=== PATIENT | male | born 1965 | race African-American/Black ===

== ENCOUNTER 2017-09-20 10:31 | Inpatient (IN) | payer SELFPAY ==
[~2017-09-20] VITALS: Ht 185.4 cm; Wt 118.0 kg
[~2017-09-20 10:31] MED LIST: COUM5TAB PO; NAPR500 PO
[2017-09-20 10:39] VITALS: BP 152/96; PULSE 73; RESP 20; TEMP 98.9; O2SAT 97
[2017-09-20] MEDS ORDERED: ASPI325T PO (10:44)
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
[2017-09-20] MEDS ORDERED: KETOROLAC TROMETHAMINE 30 MG/ML (IVP) VIAL IV PUSH ONE (11:15)
[2017-09-20] MEDS ORDERED: SODIUM CHLORID 0.9% 500 ML INJ 500 ML IV ONE (11:15)
[2017-09-20] MEDS ORDERED: ACETAMINOPHEN/HYDROcodone 325 MG/5 MG TAB PO ONE (11:15)
[2017-09-20 12:20] VITALS: BP 112/59; PULSE 70; RESP 16; O2SAT 98
--- NOTE | 2017-09-20 12:44 | RADRPT ---
EXAM DATE/TIME: 09/20/2017 11:25 [facility] COMPARISON: No previous studies available for comparison. INDICATIONS : Back pain. RADIATION DOSE: 35.86 CTDIvol (mGy) MEDICAL HISTORY : Deep venous thrombosis. SURGICAL HISTORY : IVC filter. ENCOUNTER: Initial ACUITY: 1 day PAIN SCALE: 5/10 LOCATION: Bilateral lumbar TECHNIQUE: Volumetric scanning of the lumbar spine was performed. Multiplanar reconstructions in the sagittal, coronal and oblique axial planes were performed. Using automated exposure control and adjustment of the mA and/or kV according to patient size, radiation dose was kept as low as reasonably achievable t o obtain optimal diagnostic quality images. DICOM format image data is available electronically for review and comparison. FINDINGS: VERTEBRAE: Normal vertebral body height. There is a rudimentary S1-S2 disc. ALIGNMENT: No evidence of subluxation. There is minimal dextrocurvature of the lumbar spine seen on the coronal images. OTHER: There is an IVC filter. T12-L1: The thecal sac has a normal diameter. No evidence of disc bulge or protrusion. The neural foramina are patent bilaterally. L1-L2: The thecal sac has a normal diameter. No evidence of disc bulge or protrusion. The neural foramina are patent bilaterally. L2-L3: The thecal sac has a normal diameter. No evidence of disc bulge or protrusion. The neural foramina are patent bilaterally. L3-L4: There is slight disc bulging worse on the left without significant stenosis. The neural foramina are patent bilaterally. There is mild facet hypertrophy. L4-L5: There is mild disc bulge. Anterior marginal osteophytes are seen. There is mild facet hypertrophy. Th ere is ligamentum flavum hypertrophy especially on the left. There appears to be least mild narrowing of the thecal sac. The neural foramina are patent bilaterally. L5-S1: The thecal sac has a normal diameter. No evidence of disc bulge or protrusion. The neural foramina are patent bilaterally. CONCLUSION: 1. Mild disc bulge at the L4-5 level. It is very prominent ligamentum flavum hypertrophy. These yates es cause at least mild narrowing of the thecal sac. 2. Facet hypertrophy at the L3-L4 and L4-L5 levels Darian Almanza MD on September 20, 2017 at 12:36 Board Certified Radiologist. This report was verified electronically.
[2017-09-20 14:04] VITALS: BP 117/68; PULSE 71; RESP 16; O2SAT 99
[2017-09-20 14:12] LABS: AUTOMATED NEUTROPHIL # 6.1 TH/MM3 (1.8-7.7); BASOPHIL % 0.5 % (0.0-2.0); EOSINOPHIL # 0.2 TH/MM3 (0-0.4); EOSINOPHIL % 3.2 % (0.0-4.0); HEMATOCRIT 36.2 % (39.0-51.0); LYMPH % 12.1 % (9.0-44.0); LYMPHOCYTE # 0.9 TH/MM3 (1.0-4.8); MEAN CELL VOLUME 86.9 FL (80.0-100.0); MEAN CORPUSCULAR HEMOGLOBIN 28.8 PG (27.0-34.0); MEAN CORPUSCULAR HGB CONC 33.2 % (32.0-36.0); MONO % 6.7 % (0.0-8.0); NEUT % 77.5 % (16.0-70.0); PLATELET COUNT 127 TH/MM3 (150-450); RED BLOOD COUNT 4.17 MIL/MM3 (4.50-5.90); RED CELL DISTRIBUTION WIDTH 14.9 % (11.6-17.2); WHITE BLOOD COUNT 7.9 TH/MM3 (4.0-11.0)
[2017-09-20 14:19] LABS: APTT (PATIENT) 28.2 SEC (24.3-30.1)
[2017-09-20 14:25] LABS: HEMO FLAGS AUTO DIFF
[2017-09-20 14:27] LABS: BICARBONATE 27.2 MEQ/L (21.0-32.0)
[2017-09-20 14:28] LABS: POTASSIUM 4.9 MEQ/L (3.5-5.1)
[2017-09-20] MEDS ORDERED: SODIUM CHLORIDE 0.9% FLUSH 10 ML FLUSH IV FLUSH PRN (14:45)
[2017-09-20 14:50] LABS: SCAN/DIFF AUTO DIFF CONFIRMED
[2017-09-20 15:06] LABS: TOTAL BILIRUBIN ADULT 0.6 MG/DL (0.2-1.0)
[2017-09-20 15:14] LABS: INDIRECT BILIRUBIN 0.5 MG/DL (0.0-0.8)
[2017-09-20] MEDS ORDERED: ACETAMINOPHEN/HYDROcodone 325 MG/5 MG TAB PO PRN (15:15)
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
--- NOTE | 2017-09-20 15:23 | RADRPT ---
EXAM DATE/TIME: 09/20/2017 13:28 [facility] COMPARISON: No previous studies available for comparison. INDICATIONS : Right leg pain. MEDICAL HISTORY : Deep vein thrombosis. Pulmonary embolism. Asthma. SURGICAL HISTORY : IVC filter. Left hand surgery. ENCOUNTER: Initial ACUITY: 4 - 6 days PAIN SCORE: 1/10 LOCATION: Right leg. TECHNIQUE: Venous ultrasound of the leg was performed from the inguinal ligament to the proximal calf. Real-brenton e, color Doppler and spectral tracing, compression and augmentation techniques were used. FINDINGS: Echogenic noncompressible material is seen extending from the common femoral vein to the below-knee p opliteal vein. This is essentially occlusive throughout. Thrombus is also seen at the junction of the greater saphenous vein with the common femoral vein. This is nearly occlusive. CONCLUSION: Diffuse occlusive DVT. Vega London Jr., MD on September 20, 2017 at 15:20 Board Certified Radiologist. This report was verified electronically.
[2017-09-20] MEDS ORDERED: HEPARIN SODIUM - IV 10,000 UNITS/10 ML VIAL IV PUSH ONE (15:30)
[2017-09-20] MEDS: HEPARIN-D5W 25,000 U/250 ML 250 ML IV PRN (15:52)
[2017-09-20] MEDS ORDERED: IOHEXOL 350 MG/ML 10 ML VIAL (for RAD DIAG) IVCONTRAST ONE (16:24)
--- NOTE | 2017-09-20 16:37 | RADRPT ---
EXAM DATE/TIME: 09/20/2017 16:12 [facility] COMPARISON: No previous studies available for comparison. INDICATIONS : History of pulmonary embolism and deep vein thrombosis. IV CONTRAST: 65 cc Omnipaque 350 (iohexol) IV RADIATION DOSE: 16.13 CTDIvol (mGy) MEDICAL HISTORY : Deep venous thrombosis. Pulmonary embolism SURGICAL HISTORY : IVC Filter placement. ENCOUNTER: Initial ACUITY: 2 days PAIN SCALE: 0/10 LOCATION: chest TECHNIQUE: Volumetric scanning of the chest was performed using a pulmonary embolism protocol MIP images were re constructed. Using automated exposure control and adjustment of the mA and/or kV according to patien t size, radiation dose was kept as low as reasonably achievable to obtain optimal diagnostic quality images. DICOM format image data is available electronically for review and comparison. Follow-up recommendations for detected pulmonary nodules are based at a minimum on nodule size and pa tient risk factors according to Fleischner Society Guidelines. FINDINGS: PULMONARY ARTERIES: No filling defects are seen in the pulmonary arteries through the segmental level. LUNGS: There is no consolidation or pneumothorax . No concerning pulmonary nodule is visualized. PLEURAE: There is no pleural thickening or pleural effusion. MEDIASTINUM: There is good visualization of the great vessels of the middle mediastinum. No evidence of mediastin al or hilar adenopathy/mass. MUSCULOSKELETAL: Within normal limits for patient age. MISCELLANEOUS: The visualized upper abdominal organs demonstrate no acute abnormality. CONCLUSION: 1. Negative for pulmonary embolus. Minimal emphysema at the lung apices. Mild dependent atelectasis i n the lungs. Luciano Xie MD on September 20, 2017 at 16:29 Board Certified Radiologist. This report was verified electronically.
[2017-09-20] MEDS: NICOTINE 14 MG/24 HR PATCH T-DERMAL SCH (16:55)
[2017-09-20] MEDS: WARFARIN SOD 5 MG TAB PO SCH (16:55)
[2017-09-20 16:56] VITALS: BP 130/79; PULSE 70; RESP 14; O2SAT 97
[2017-09-20 17:30] VITALS: BP 149/87; PULSE 70; RESP 18; TEMP 98.4; O2SAT 99
[2017-09-20] MEDS: ACETAMINOPHEN/HYDROcodone 325 MG/5 MG TAB PO PRN (18:11)
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
[2017-09-20 20:00] VITALS: BP 130/83; PULSE 71; RESP 17; TEMP 98.1; O2SAT 99
[2017-09-20] MEDS: SODIUM CHLORIDE 0.9% FLUSH 10 ML FLUSH IV FLUSH SCH (20:00)
[2017-09-20 21:14] LABS: BLOOD, URINE NEG (NEG); COMMENT (UR) CULT NOT INDICATED; CULTURE IF INDICATED CULT NOT INDICATED; GLUCOSE,URINE NEG (NEG); KETONE, URINE NEG (NEG); MUCUS URINE FEW /lpf (OCC); NITRITE,URINE NEG (NEG); PH, URINE 6.5 (5.0-8.5); SQUAMOUS EPITHELIAL CELL URINE 2 /hpf (0-5); URINE COLOR YELLOW (YELLW/STRAW)
[2017-09-20] MEDS: MORPHINE SULFATE 4 MG/ML INJ IV PUSH PRN (21:14)
[2017-09-20 22:57] LABS: APTT (PATIENT) 119.3 SEC (24.3-30.1)
[2017-09-21] VITALS: BP 119/72; PULSE 83; RESP 17; TEMP 97.7; O2SAT 96
[2017-09-21 01:48] LABS: APTT (PATIENT) 53.1 SEC (24.3-30.1)
[2017-09-21] MEDS: ACETAMINOPHEN/HYDROcodone 325 MG/5 MG TAB PO PRN ×4 (06:22→21:15)
[2017-09-21] MEDS: REMOVE OLD PATCH T-DERMAL SCH (07:55)
[2017-09-21] MEDS: SODIUM CHLORIDE 0.9% FLUSH 10 ML FLUSH IV FLUSH SCH ×2 (07:55→21:00)
[2017-09-21] MEDS: NICOTINE 14 MG/24 HR PATCH T-DERMAL SCH (07:55)
[2017-09-21] MEDS: HEPARIN-D5W 25,000 U/250 ML 250 ML IV PRN (07:57)
[2017-09-21 08:00] VITALS: BP 103/65; PULSE 80; RESP 16; TEMP 98.1; O2SAT 93
[2017-09-21 09:28] LABS: AUTOMATED NEUTROPHIL # 3.9 TH/MM3 (1.8-7.7); BASOPHIL % 0.4 % (0.0-2.0); EOSINOPHIL # 0.3 TH/MM3 (0-0.4); EOSINOPHIL % 4.4 % (0.0-4.0); HEMATOCRIT 34.3 % (39.0-51.0); HEMO FLAGS DIFF FINAL; LYMPHOCYTE # 1.1 TH/MM3 (1.0-4.8); MEAN CELL VOLUME 86.9 FL (80.0-100.0); MEAN CORPUSCULAR HEMOGLOBIN 28.5 PG (27.0-34.0); MEAN CORPUSCULAR HGB CONC 32.8 % (32.0-36.0); MONO % 8.3 % (0.0-8.0); NEUT % 67.9 % (16.0-70.0); PLATELET COUNT 100 TH/MM3 (150-450); RED BLOOD COUNT 3.94 MIL/MM3 (4.50-5.90); RED CELL DISTRIBUTION WIDTH 15.1 % (11.6-17.2); WHITE BLOOD COUNT 5.8 TH/MM3 (4.0-11.0)
[2017-09-21 09:36] LABS: PROTHROMBIN TIME - PATIENT 11.4 SEC (9.8-11.6)
--- NOTE | 2017-09-21 09:48 | HHI.FPPN ---
Subjective Remarks Patient is "doing". He reported pain this morning in his right leg that is worse after he urinated. This pain occurred after he urinated. He points to the inguinal region on the right. He denies CP, SOB, adbominal pain, nausea, vomiting. He has not yet had a bowel. No blood in urine. No other signs of bleeding. (Zelalem Apodaca MD, R3) Objective Vitals Vital Signs Date Time Temp Pulse Resp B/P (MAP) Pulse Ox O2 Delivery O2 Flow Rate FiO2 09/21/17 08:00 98.1 80 16 103/65 (78) 93 09/21/17 00:00 97.7 83 17 119/72 (88) 96 09/20/17 20:00 98.1 71 17 130/83 (99) 99 09/20/17 18:14 09/20/17 17:30 98.4 70 18 149/87 (107) 99 09/20/17 16:56 70 14 130/79 (96) 97 Room Air 09/20/17 14:04 71 16 117/68 (84) 99 Room Air 09/20/17 12:20 70 16 112/59 (76) 98 Room Air 09/20/17 10:39 98.9 73 20 152/96 (114) 97 I/O 09/20/17 09/20/17 09/20/17 09/21/17 09/21/17 09/21/17 07:00 15:00 23:00 07:00 15:00 23:00 Intake Total 500 ml 59 ml 391 ml Output Total 200 ml 1050 ml Balance 500 ml -141 ml -659 ml Intake Oral 240 ml IV Total 500 ml 59 ml 151 ml Output Urine Total 200 ml 1050 ml (Zelalem Apodaca MD, R3) Result Diagram: 09/21/17 0847 09/20/17 1112 A/P Assessment and Plan Mr. Dozier is a 52-year-old male the past medical history of unprovoked DVT and PE presenting with extensive DVT of the right leg. CTA was negative for pulmonary embolus. He is being admitted to inpatient for anticoagulation and workup. (Zelalem Apodaca MD, R3) Attending Attestation Table rounds were conducted about patients admission with Dr King, Dr Nj, Dr Devlin and Dr Guillaume, EMR reviewed, patient was then seen and examined, Agree with contents os note, See Orders. (Liang Rodríguez MD) Problem List: (1) DVT (deep venous thrombosis) ICD Codes: I82.409 - DVT (deep venous thrombosis) Status: Acute Plan: Patient has a history of unprovoked DVT and PE in 2012. IVC filter was placed. He was started on Coumadin which he stopped taking one year ago. No sign of PE on CTA 09/20. He will need indefinite anticoagulation because of his history. US Right Leg Venous Doppler- Echogenic noncompressible material is seen extending from the common femoral vein to the below-knee popliteal vein. This is essentially occlusive throughout. Thrombus is also seen at the junction of the greater saphenous vein with the common femoral vein. This is nearly occlusive. * Hematology consulted * would be best served by one of the modern anticoagulants such as Xarelto 20 milligrams a day or apixaban 5 milligrams a day as opposed to Coumadin. However , pt does not have money or insurance. * INR between 2 and 3 indefinitely * at a high risk of recurrent venous thrombosis given that the second unprovoked venous thrombosis and is extensive. * Case management consulted * Heparin drip titrated per protocol * Warfarin 5mg po qD * Daily INRs (goal between 2 and 3) (2) Tobacco dependence syndrome Status: Chronic Plan: Pt has a 40 pack year history. Interested in quitting. * Nicotine patch * Referral to the [place] Quit line (3) FEN Status: Acute Plan: Fluids: po hydration Electrolytes: monitor and replete as needed Nutrition: heart healthy diet GI ppx: PRN meds SDW Dr. Rodríguez, Dr. Perri Nj, and Dr. Devlin (Zelalem Apodaca MD, R3) Problem Qualifiers (1) DVT (deep venous thrombosis): Qualified Codes: I82.401 - Acute embolism and thrombosis of unspecified deep veins of right lower extremity Zelalem Apodaca MD, R3 Sep 21, 2017 09:48 Liang Rodríguez MD Sep 22, 2017 18:40
[2017-09-21 10:16] LABS: ALKALINE PHOSPHATASE 86 U/L (45-117); ALT (GPT) 18 U/L (12-78); ANION GAP 5 MEQ/L (5-15); AST (GOT) 24 U/L (15-37); BICARBONATE 25.6 MEQ/L (21.0-32.0); BLOOD UREA NITROGEN 16 MG/DL (7-18); CHLORIDE 105 MEQ/L (98-107); GLOMERULAR FILTRATION RATE 109 ML/MIN (>89); SODIUM (NA) 136 MEQ/L (136-145); TOTAL BILIRUBIN ADULT 0.5 MG/DL (0.2-1.0)
[2017-09-21 10:20] LABS: POTASSIUM 4.1 MEQ/L (3.5-5.1)
[2017-09-21 12:00] VITALS: BP 108/58; PULSE 73; RESP 16; TEMP 97.4; O2SAT 99
[2017-09-21 12:53] LABS: APTT (PATIENT) 48.7 SEC (24.3-30.1)
--- NOTE | 2017-09-21 15:50 | PD.ONC.PN ---
Subjective Subjective Remarks right leg slightly less painful. Objective Data Date Time Temp Pulse Resp B/P (MAP) Pulse Ox O2 Delivery O2 Flow Rate FiO2 09/21/17 12:00 97.4 73 16 108/58 (75) 99 09/21/17 08:00 98.1 80 16 103/65 (78) 93 09/21/17 00:00 97.7 83 17 119/72 (88) 96 09/20/17 20:00 98.1 71 17 130/83 (99) 99 09/20/17 18:14 09/20/17 17:30 98.4 70 18 149/87 (107) 99 09/20/17 16:56 70 14 130/79 (96) 97 Room Air 09/21/17 09/21/17 09/21/17 07:00 15:00 23:00 Intake Total 391 ml Output Total 1050 ml Balance -659 ml Result Diagram: 09/21/17 0847 09/21/17 0847 Laboratory Results Laboratory Tests Test 09/20/17 20:05 09/20/17 21:48 09/21/17 01:02 09/21/17 08:47 Urine Color YELLOW Urine Turbidity CLEAR Urine pH 6.5 Urine Specific [place] GREATER THAN 1.050 Urine Protein 30 mg/dL Urine Glucose (UA) NEG mg/dL Urine Ketones NEG mg/dL Urine Occult Blood NEG Urine Nitrite NEG Urine Bilirubin NEG Urine Urobilinogen 4.0 MG/DL Urine Leukocyte Esterase NEG Urine RBC 2 /hpf Urine WBC 1 /hpf Urine Squamous Epithelial Cells 2 /hpf Urine Mucus FEW /lpf Microscopic Urinalysis Comment CULT NOT INDICATED Urine Opiates Screen NEG Urine Barbiturates Screen NEG Urine Amphetamines Screen NEG Urine Benzodiazepines Screen NEG Urine Cocaine Screen NEG Urine Cannabinoids Screen POS Activated Partial Thromboplast Time 119.3 SEC 53.1 SEC White Blood Count 5.8 TH/MM3 Red Blood Count 3.94 MIL/MM3 Hemoglobin 11.2 GM/DL Hematocrit 34.3 % Mean Corpuscular Volume 86.9 FL Mean Corpuscular Hemoglobin 28.5 PG Mean Corpuscular Hemoglobin Concent 32.8 % Red Cell Distribution Width 15.1 % Platelet Count 100 TH/MM3 Mean Platelet Volume 7.7 FL Neutrophils (%) (Auto) 67.9 % Lymphocytes (%) (Auto) 19.0 % Monocytes (%) (Auto) 8.3 % Eosinophils (%) (Auto) 4.4 % Basophils (%) (Auto) 0.4 % Neutrophils # (Auto) 3.9 TH/MM3 Lymphocytes # (Auto) 1.1 TH/MM3 Monocytes # (Auto) 0.5 TH/MM3 Eosinophils # (Auto) 0.3 TH/MM3 Basophils # (Auto) 0.0 TH/MM3 CBC Comment DIFF FINAL Differential Comment Prothrombin Time 11.4 SEC Prothromb Time International Ratio 1.0 RATIO Blood Urea Nitrogen 16 MG/DL Creatinine 0.89 MG/DL Random Glucose 106 MG/DL Total Protein 7.9 GM/DL Albumin 3.3 GM/DL Calcium Level 8.7 MG/DL Alkaline Phosphatase 86 U/L Aspartate Amino Transf (AST/SGOT) 24 U/L Alanine Aminotransferase (ALT/SGPT) 18 U/L Total Bilirubin 0.5 MG/DL Sodium Level 136 MEQ/L Potassium Level 4.1 MEQ/L Chloride Level 105 MEQ/L Carbon Dioxide Level 25.6 MEQ/L Anion Gap 5 MEQ/L Estimat Glomerular Filtration Rate 109 ML/MIN Test 09/21/17 12:21 Activated Partial Thromboplast Time 48.7 SEC Administered Medications Medications (Trade) Dose Ordered Sig/Jerry Route PRN Reason Start Time Stop Time Status Last Admin Dose Admin Sodium Chloride (NS Flush) 2 ml BID IV FLUSH 09/20/17 21:00 09/20/17 20:00 Acetaminophen/ Hydrocodone Bitart (Sarita 5-325 Mg) 2 tab Q4H PRN PO PAIN SCALE 6 TO 10 09/20/17 15:15 09/21/17 10:13 Morphine Sulfate (Morphine Inj) 2 mg Q4H PRN IV PUSH BREAKTHROUGH PAIN 09/20/17 15:15 09/20/17 21:14 Heparin Sodium/ Dextrose 250 ml @ 20.52 mls/ hr TITRATE PRN IV Coagulation management 09/20/17 15:15 09/21/17 07:57 Nicotine (Habitrol 14 Mg Patch.24 Hr) 1 patch DAILY T-DERMAL 09/20/17 15:45 09/21/17 07:55 Miscellaneous Information 1 DAILY T-DERMAL 09/21/17 09:00 09/21/17 07:55 Warfarin Sodium (Coumadin) 5 mg DAILY@1600 PO 09/20/17 16:00 10/21/17 16:55 Objective Remarks GENERAL: Well-nourished, well-developed patient. SKIN: Warm and dry. HEAD: Normocephalic. EYES: No scleral icterus. No injection or drainage. NECK: Supple, trachea midline. No JVD or lymphadenopathy. LYMPHATIC: No adenopathy. CARDIOVASCULAR: Regular rate and rhythm without murmurs. RESPIRATORY: Breath sounds equal bilaterally. No accessory muscle use. GASTROINTESTINAL: Abdomen soft, non-tender, nondistended. EXTREMITIES: right leg remains swollen with calf tight and tender. chronic swelling left calf MUSCULOSKELETAL: Adequate muscle tone. NEUROLOGICAL: No obvious focal deficit. Awake, alert, and oriented x3. PSYCHIATRIC: Appropriate mood and affect; insight and judgment normal. Assessment/Plan Assessment 1: unprovoked second DVT in Male with umbrella in place Plan 1: continue Coumadin unless Xa inhibitors can be provided. await case management as he needs md on discharge. 2: hemoglobin and plat have fallen. will check cbc plat in am. He had a pelvic hematoma following heparin several years ago. Vincent Hudson MD Sep 21, 2017 15:50
[2017-09-21 16:00] VITALS: BP 105/63; PULSE 70; RESP 18; TEMP 97.1; O2SAT 96
[2017-09-21] MEDS: WARFARIN SOD 5 MG TAB PO SCH (16:18)
[2017-09-21] MEDS: MORPHINE SULFATE 4 MG/ML INJ IV PUSH PRN ×2 (17:34→22:29)
[2017-09-21 20:00] VITALS: BP 110/55; PULSE 74; RESP 17; TEMP 97.3; O2SAT 96
[2017-09-21 20:27] LABS: APTT (PATIENT) 57.3 SEC (24.3-30.1)
[2017-09-21 23:54] VITALS: BP 106/61; PULSE 76; RESP 17; TEMP 97; O2SAT 96
[2017-09-22] MEDS: HEPARIN-D5W 25,000 U/250 ML 250 ML IV PRN ×2 (01:41→21:14)
[2017-09-22] MEDS: ACETAMINOPHEN/HYDROcodone 325 MG/5 MG TAB PO PRN ×4 (05:22→21:24)
[2017-09-22 06:07] LABS: APTT (PATIENT) 59.3 SEC (24.3-30.1); PROTHROMBIN TIME - PATIENT 11.1 SEC (9.8-11.6)
[2017-09-22 08:00] VITALS: BP 108/64; PULSE 73; RESP 20; TEMP 98; O2SAT 94
[2017-09-22] MEDS: NICOTINE 14 MG/24 HR PATCH T-DERMAL SCH (08:23)
[2017-09-22] MEDS: MORPHINE SULFATE 4 MG/ML INJ IV PUSH PRN ×3 (08:24→22:57)
[2017-09-22] MEDS: SODIUM CHLORIDE 0.9% FLUSH 10 ML FLUSH IV FLUSH SCH ×2 (08:25→21:00)
[2017-09-22] MEDS: REMOVE OLD PATCH T-DERMAL SCH (08:25)
[2017-09-22 09:00] LABS: AUTOMATED NEUTROPHIL # 4.2 TH/MM3 (1.8-7.7); BASOPHIL % 0.5 % (0.0-2.0); EOSINOPHIL # 0.2 TH/MM3 (0-0.4); EOSINOPHIL % 4.1 % (0.0-4.0); HEMATOCRIT 35.1 % (39.0-51.0); HEMO FLAGS DIFF FINAL; LYMPH % 16.7 % (9.0-44.0); MEAN CELL VOLUME 87.4 FL (80.0-100.0); MEAN CORPUSCULAR HEMOGLOBIN 28.6 PG (27.0-34.0); MEAN CORPUSCULAR HGB CONC 32.7 % (32.0-36.0); MONO % 8.2 % (0.0-8.0); NEUT % 70.5 % (16.0-70.0); PLATELET COUNT 115 TH/MM3 (150-450); RED BLOOD COUNT 4.02 MIL/MM3 (4.50-5.90)
[2017-09-22 09:32] LABS: ALKALINE PHOSPHATASE 80 U/L (45-117); ALT (GPT) 16 U/L (12-78); TOTAL BILIRUBIN ADULT 0.4 MG/DL (0.2-1.0)
[2017-09-22 09:34] LABS: BICARBONATE 25.7 MEQ/L (21.0-32.0); BLOOD UREA NITROGEN 13 MG/DL (7-18); GLOMERULAR FILTRATION RATE 116 ML/MIN (>89)
[2017-09-22 09:43] LABS: ANION GAP 6 MEQ/L (5-15); AST (GOT) 26 U/L (15-37); CHLORIDE 106 MEQ/L (98-107); POTASSIUM 4.1 MEQ/L (3.5-5.1); SODIUM (NA) 138 MEQ/L (136-145)
--- NOTE | 2017-09-22 11:00 | HHI.FPPN ---
Subjective Remarks Patient also states that he is doing okay this morning. He is having some lower abdominal pain and right groin pain. No fevers or chills, no shortness of breath , no nausea or vomiting, no diarrhea or constipation. He inquired about whether or not his right leg swelling will go down with the warfarin. It was explained to him that the anticoagulants prevent new clots from forming, but do not break down existing clots. Objective Vitals Vital Signs Date Time Temp Pulse Resp B/P (MAP) Pulse Ox O2 Delivery O2 Flow Rate FiO2 09/22/17 08:00 98.0 73 20 108/64 (79) 94 09/21/17 23:54 97.0 76 17 106/61 (76) 96 09/21/17 20:00 97.3 74 17 110/55 (73) 96 09/21/17 16:00 97.1 70 18 105/63 (77) 96 09/21/17 12:00 97.4 73 16 108/58 (75) 99 I/O 09/21/17 09/21/17 09/21/17 09/22/17 09/22/17 09/22/17 07:00 15:00 23:00 07:00 15:00 23:00 Intake Total 391 ml 1573 ml 317 ml Output Total 1050 ml 800 ml 900 ml Balance -659 ml 773 ml -583 ml Intake Oral 240 ml 1400 ml 240 ml IV Total 151 ml 173 ml 77 ml Output Urine Total 1050 ml 800 ml 900 ml # Bowel Movements 0 Result Diagram: 09/22/17 0806 09/22/17 0806 Imaging Last Impressions Lower Extremity Ultrasound 09/20/17 1330 Signed Impressions: Service Date/Time: Wednesday, September 20, 2017 13:28 - CONCLUSION: Diffuse occlusive DVT. Vega London Jr., MD Lumbar Spine CT 09/20/17 1113 Signed Impressions: Service Date/Time: Wednesday, September 20, 2017 11:25 - CONCLUSION: 1. Mild disc bulge at the L4-5 level. It is very prominent ligamentum flavum hypertrophy. These changes cause at least mild narrowing of the thecal sac. 2. Facet hypertrophy at the L3-L4 and L4-L5 levels Darian Almanza MD CT Angiography 09/20/17 0000 Signed Impressions: Service Date/Time: Wednesday, September 20, 2017 16:12 - CONCLUSION: 1. Negative for pulmonary embolus. Minimal emphysema at the lung apices. Mild dependent atelectasis in the lungs. Luciano Xie MD Objective Remarks GENERAL: Well-nourished, well-developed patient. SKIN: Warm and dry. Hyperpigmented skin of left lower leg. HEAD: Normocephalic. EYES: No scleral icterus. No injection or drainage. NECK: Supple, trachea midline. No JVD or lymphadenopathy. CARDIOVASCULAR: Regular rate and rhythm without murmurs, gallops, or rubs. RESPIRATORY: Breath sounds equal bilaterally. No accessory muscle use. Diffuse wheezes bilaterally GASTROINTESTINAL: Abdomen soft, non-tender, nondistended. EXTREMITIES: No cyanosis.. erythema and edema of total right leg with skin tightness. No calf tenderness. Negative Homans sign bilaterally. NEUROLOGICAL: Awake, alert, and oriented x 3. Non-focal. A/P Assessment and Plan Mr. Dozier is a 52-year-old male the past medical history of unprovoked DVT and PE presenting with extensive DVT of the right leg. CTA was negative for pulmonary embolus. He is being admitted to inpatient for anticoagulation and workup. Problem List: (1) DVT (deep venous thrombosis) ICD Codes: I82.409 - DVT (deep venous thrombosis) Status: Acute Plan: Patient has a history of unprovoked DVT and PE in 2012. IVC filter was placed. He was started on Coumadin which he stopped taking one year ago. No sign of PE on CTA 09/20. He will need indefinite anticoagulation because of his history. US Right Leg Venous Doppler- Echogenic noncompressible material is seen extending from the common femoral vein to the below-knee popliteal vein. This is essentially occlusive throughout. Thrombus is also seen at the junction of the greater saphenous vein with the common femoral vein. This is nearly occlusive. * Hematology consulted * would be best served by one of the modern anticoagulants such as Xarelto 20 milligrams a day or apixaban 5 milligrams a day as opposed to Coumadin. However , pt does not have money or insurance. * INR between 2 and 3 indefinitely * at a high risk of recurrent venous thrombosis given that the second unprovoked venous thrombosis and is extensive. * Case management consulted * Heparin drip titrated per protocol * Warfarin 5mg po qD * Daily INRs (goal between 2 and 3) * Will consult Vascular surgery for further recommendations on treatment (2) Tobacco dependence syndrome Status: Chronic Plan: Pt has a 40 pack year history. Interested in quitting. * Nicotine patch * Referral to the [place] Quit line (3) FEN Status: Acute Plan: Fluids: po hydration Electrolytes: monitor and replete as needed Nutrition: heart healthy diet GI ppx: PRN meds SDW Dr. Rodríguez, Dr. Perri Nj, and Dr. Devlin Problem Qualifiers (1) DVT (deep venous thrombosis): Qualified Codes: I82.401 - Acute embolism and thrombosis of unspecified deep veins of right lower extremity Katerin Devlin MD R1 Sep 22, 2017 11:00
[2017-09-22 12:00] VITALS: BP 106/67; PULSE 78; RESP 18; TEMP 95.7; O2SAT 95
[2017-09-22 16:00] VITALS: BP 110/64; PULSE 74; RESP 18; TEMP 98.1; O2SAT 96
[2017-09-22] MEDS: WARFARIN SOD 5 MG TAB PO SCH (16:56)
--- NOTE | 2017-09-22 17:26 | PD.VS.CON ---
History of Present Illness Chief Complaint: R LE swelling, DVT Consult Requested by: medical service History of Present Illness 52 yo male with h/o DVT and known L LE DVT years ago with IVC filter placement, although the circumstances are a little unclear. He was maintained on coumadin until recently when he said he couldn't afford medicine and stopped it. Now has 5 days of R LE swelling and pain. No wounds. No family history of DVT/PE/VTE event. Past/Family/Social History Past Medical History DVT/PE Past Surgical History IVC filter placement Social History lives in [facility] + tobacco Family History no VTE events Home Medications Reported Medications Aspirin (Aspirin) 325 Mg Tab, 325 MG PO DAILY, #30 TAB 0 Refills 09/20/17 Coded Allergies: No Known Allergies (Verified , 09/20/17) Review of Systems Constitutional: DENIES: Chills Musculoskeletal: COMPLAINS OF: Joint pain, Stiffness, Joint Swelling Neurologic: COMPLAINS OF: Abnormal gait Physical Exam Vitals/I&O Date Time Temp Pulse Resp B/P (MAP) Pulse Ox O2 Delivery O2 Flow Rate FiO2 09/22/17 16:00 98.1 74 18 110/64 (79) 96 09/22/17 12:00 95.7 78 18 106/67 (80) 95 09/22/17 08:00 98.0 73 20 108/64 (79) 94 09/21/17 23:54 97.0 76 17 106/61 (76) 96 09/21/17 20:00 97.3 74 17 110/55 (73) 96 09/22/17 09/22/17 09/22/17 07:00 15:00 23:00 Intake Total 317 ml Output Total 900 ml Balance -583 ml Neuro: alert, pleasant, no distress HEENT: NC/AT; aniecteric sclera Neck: trachea midline Heart: reg rate Lungs: nonlabored breathing Vascular: palpable DP bilaterally Extremities: edema R LE to mid thigh edema L LE slightly less Laboratory Tests Test 09/21/17 19:34 09/22/17 05:15 09/22/17 08:06 Activated Partial Thromboplast Time 57.3 59.3 Prothrombin Time 11.1 Prothromb Time International Ratio 1.0 White Blood Count 6.0 Red Blood Count 4.02 Hemoglobin 11.5 Hematocrit 35.1 Mean Corpuscular Volume 87.4 Mean Corpuscular Hemoglobin 28.6 Mean Corpuscular Hemoglobin Concent 32.7 Red Cell Distribution Width 15.0 Platelet Count 115 Mean Platelet Volume 7.9 Neutrophils (%) (Auto) 70.5 Lymphocytes (%) (Auto) 16.7 Monocytes (%) (Auto) 8.2 Eosinophils (%) (Auto) 4.1 Basophils (%) (Auto) 0.5 Neutrophils # (Auto) 4.2 Lymphocytes # (Auto) 1.0 Monocytes # (Auto) 0.5 Eosinophils # (Auto) 0.2 Basophils # (Auto) 0.0 CBC Comment DIFF FINAL Differential Comment Blood Urea Nitrogen 13 Creatinine 0.84 Random Glucose 89 Total Protein 8.0 Albumin 3.2 Calcium Level 9.0 Alkaline Phosphatase 80 Aspartate Amino Transf (AST/SGOT) 26 Alanine Aminotransferase (ALT/SGPT) 16 Total Bilirubin 0.4 Sodium Level 138 Potassium Level 4.1 Chloride Level 106 Carbon Dioxide Level 25.7 Anion Gap 6 Estimat Glomerular Filtration Rate 116 B LE venous duplex: + fem-pop vein DVT, appears chronic (echogenic) to me Assessment and Plan Plan LE DVT with swelling, appears chronic on duplex but only 5d of symptoms. 1. Needs anticoagulation, likely lifetime 2. Compression for symptom relief (compression hose toes to groins) - wear every day 3. No indication for intervention given only modest symptoms as risk/benefits not great for chronic DVT Will follow. Mateo Sainz MD FACS RPVI pasting inspector [facility] - Heart and Vascular Surgery at [facility] [phone] Mateo Sainz MD Sep 22, 2017 17:26
[2017-09-22 20:26] VITALS: BP 119/70; PULSE 84; RESP 20; TEMP 100; O2SAT 96
[2017-09-23 00:31] VITALS: BP 124/75; PULSE 90; RESP 20; TEMP 97.8; O2SAT 96
[2017-09-23] MEDS: ACETAMINOPHEN/HYDROcodone 325 MG/5 MG TAB PO PRN ×3 (06:35→21:07)
[2017-09-23 08:00] VITALS: BP 131/82; PULSE 66; RESP 19; TEMP 96.5; O2SAT 96
[2017-09-23] MEDS: MORPHINE SULFATE 4 MG/ML INJ IV PUSH PRN ×3 (08:01→23:10)
[2017-09-23] MEDS: SODIUM CHLORIDE 0.9% FLUSH 10 ML FLUSH IV FLUSH SCH ×2 (08:01→21:00)
[2017-09-23] MEDS: REMOVE OLD PATCH T-DERMAL SCH (08:03)
[2017-09-23] MEDS: NICOTINE 14 MG/24 HR PATCH T-DERMAL SCH (08:03)
[2017-09-23 09:01] LABS: HEMATOCRIT 34.5 % (39.0-51.0); MEAN CELL VOLUME 86.8 FL (80.0-100.0); MEAN CORPUSCULAR HEMOGLOBIN 28.8 PG (27.0-34.0); MEAN CORPUSCULAR HGB CONC 33.2 % (32.0-36.0); PLATELET COUNT 119 TH/MM3 (150-450); RED BLOOD COUNT 3.98 MIL/MM3 (4.50-5.90); REVIEW FLAG FINAL; WHITE BLOOD COUNT 6.4 TH/MM3 (4.0-11.0)
[2017-09-23 09:12] LABS: APTT (PATIENT) 58.1 SEC (24.3-30.1); PROTHROMBIN TIME - PATIENT 11.3 SEC (9.8-11.6)
--- NOTE | 2017-09-23 10:02 | HHI.FPPN ---
Subjective Remarks Patient seen and examined this morning. He states that he is doing well this morning. No chest pain, no shortness of breath, no fevers or chills, no abdominal pain, no nausea or vomiting, no diarrhea or constipation. He request to be able to get out of bed. He would like to take a shower. No other complaints. He feels that his pain is well managed with his current regimen. Objective Vitals Vital Signs Date Time Temp Pulse Resp B/P (MAP) Pulse Ox O2 Delivery O2 Flow Rate FiO2 09/23/17 08:03 18 09/23/17 08:00 96.5 66 19 131/82 (98) 96 09/23/17 00:31 97.8 90 20 124/75 (91) 96 09/22/17 20:26 100.0 84 20 119/70 (86) 96 09/22/17 16:00 98.1 74 18 110/64 (79) 96 09/22/17 12:00 95.7 78 18 106/67 (80) 95 I/O 09/22/17 09/22/17 09/22/17 09/23/17 09/23/17 09/23/17 07:00 15:00 23:00 07:00 15:00 23:00 Intake Total 317 ml 1800 ml 680 ml Output Total 900 ml 1100 ml 1200 ml Balance -583 ml 700 ml -520 ml Intake Oral 240 ml 1800 ml 680 ml IV Total 77 ml Output Urine Total 900 ml 1100 ml 1200 ml # Bowel Movements 0 Result Diagram: 09/23/17 0750 09/22/17 0806 Objective Remarks GENERAL: Well-nourished, well-developed patient. SKIN: Warm and dry. Hyperpigmented skin of left lower leg. HEAD: Normocephalic. EYES: No scleral icterus. No injection or drainage. NECK: Supple, trachea midline. No JVD or lymphadenopathy. CARDIOVASCULAR: Regular rate and rhythm without murmurs, gallops, or rubs. RESPIRATORY: Breath sounds equal bilaterally. No accessory muscle use. Diffuse wheezes bilaterally GASTROINTESTINAL: Abdomen soft, non-tender, nondistended. EXTREMITIES: No cyanosis.. erythema and edema of total right leg with skin tightness. No calf tenderness. Negative Homans sign bilaterally. NEUROLOGICAL: Awake, alert, and oriented x 3. Non-focal. A/P Assessment and Plan Mr. Dozier is a 52-year-old male the past medical history of unprovoked DVT and PE presenting with extensive DVT of the right leg. CTA was negative for pulmonary embolus. He is being admitted to inpatient for anticoagulation and workup. Problem List: (1) DVT (deep venous thrombosis) ICD Codes: I82.409 - DVT (deep venous thrombosis) Status: Acute Plan: Patient has a history of unprovoked DVT and PE in 2012. IVC filter was placed. He was started on Coumadin which he stopped taking one year ago. No sign of PE on CTA 09/20. He will need indefinite anticoagulation because of his history. US Right Leg Venous Doppler- Echogenic noncompressible material is seen extending from the common femoral vein to the below-knee popliteal vein. This is essentially occlusive throughout. Thrombus is also seen at the junction of the greater saphenous vein with the common femoral vein. This is nearly occlusive. * Hematology consulted * would be best served by one of the modern anticoagulants such as Xarelto 20 milligrams a day or apixaban 5 milligrams a day as opposed to Coumadin. However , pt does not have money or insurance. * INR between 2 and 3 indefinitely * at a high risk of recurrent venous thrombosis given that the second unprovoked venous thrombosis and is extensive. * Case management consulted * Heparin drip titrated per protocol- currently therapeutic * Warfarin 5mg po qD- INR at 1.0 on 09/23 * Daily INRs (goal between 2 and 3) * Will consult Vascular surgery for further recommendations on treatment, we appreciate your recs * Compression for symptom relief (compression hose toes to groins) - wear every day * No indication for intervention given only modest symptoms as risk/benefits not great for chronic DVT * Follow-up appointment in one month with Dr. Sainz (2) Tobacco dependence syndrome Status: Chronic Plan: Pt has a 40 pack year history. Interested in quitting. * Nicotine patch * Referral to the [place] Quit line (3) FEN Status: Acute Plan: Fluids: po hydration Electrolytes: monitor and replete as needed Nutrition: heart healthy diet GI ppx: PRN meds SDW Dr. Rodríguez, Dr. Perri Nj, and Dr. Devlin Problem Qualifiers (1) DVT (deep venous thrombosis): Qualified Codes: I82.401 - Acute embolism and thrombosis of unspecified deep veins of right lower extremity Katerin Devlin MD R1 Sep 23, 2017 10:02
--- NOTE | 2017-09-23 11:13 | PD.VS.PN ---
Subjective Subjective/Hospital Course Pt in bed alert in NAD Denies Pain Pt w/o complaints R LE swelling noted Objective Vitals/I&O Date Time Temp Pulse Resp B/P (MAP) Pulse Ox O2 Delivery O2 Flow Rate FiO2 09/23/17 08:03 18 09/23/17 08:00 96.5 66 19 131/82 (98) 96 09/23/17 00:31 97.8 90 20 124/75 (91) 96 09/22/17 20:26 100.0 84 20 119/70 (86) 96 09/22/17 16:00 98.1 74 18 110/64 (79) 96 09/22/17 12:00 95.7 78 18 106/67 (80) 95 09/23/17 09/23/17 09/23/17 07:00 15:00 23:00 Intake Total 680 ml Output Total 1200 ml Balance -520 ml Physical Exam GENERAL: A&OX3,NAD, GCS15 SKIN: Warm and dry R LE Swelling present non pitting LE warm with motor intact Palpable R/L DP Laboratory Laboratory Tests Test 09/23/17 07:50 White Blood Count 6.4 Red Blood Count 3.98 Hemoglobin 11.5 Hematocrit 34.5 Mean Corpuscular Volume 86.8 Mean Corpuscular Hemoglobin 28.8 Mean Corpuscular Hemoglobin Concent 33.2 Red Cell Distribution Width 15.0 Platelet Count 119 Mean Platelet Volume 7.5 Prothrombin Time 11.3 Prothromb Time International Ratio 1.0 Activated Partial Thromboplast Time 58.1 Assessment and Plan Assessment: (1) DVT (deep venous thrombosis) Status: Acute Plan LE DVT with swelling, appears chronic on duplex but only 5d of symptoms. No indication for intervention given only modest symptoms as risk/benefits not great for chronic DVT Plan Discussed and reviewed w/ pt compression stocking therapy/DVT Discussed w/ pt the need for anticoagulation therapy, likely lifetime Apply Compression for symptom relief (compression hose toes to groins) - wear every day and remove at night Rx for out patient compression stockings written Arranged out pt f/u with a surveillance LE Duplex Akua OLSON [facility] [phone] Problem Qualifiers (1) DVT (deep venous thrombosis): Qualified Codes: I82.401 - Acute embolism and thrombosis of unspecified deep veins of right lower extremity Akua FriedmanP Sep 23, 2017 11:13
[2017-09-23 12:00] VITALS: BP 131/72; PULSE 72; RESP 17; TEMP 96.9; O2SAT 98
[2017-09-23] MEDS: HEPARIN-D5W 25,000 U/250 ML 250 ML IV PRN (14:55)
[2017-09-23 16:00] VITALS: BP 129/72; PULSE 70; RESP 18; TEMP 97.6; O2SAT 98
[2017-09-23] MEDS: WARFARIN SOD 5 MG TAB PO SCH (16:39)
[2017-09-23 20:12] VITALS: BP 123/82; PULSE 80; RESP 18; TEMP 97.4; O2SAT 98
[2017-09-23 23:48] VITALS: BP 120/68; PULSE 85; RESP 20; TEMP 97.5; O2SAT 97
[2017-09-24] MEDS: ACETAMINOPHEN/HYDROcodone 325 MG/5 MG TAB PO PRN ×4 (04:07→21:32)
[2017-09-24] MEDS: MORPHINE SULFATE 4 MG/ML INJ IV PUSH PRN ×4 (07:36→23:17)
[2017-09-24] MEDS: SODIUM CHLORIDE 0.9% FLUSH 10 ML FLUSH IV FLUSH SCH ×2 (07:37→21:00)
[2017-09-24 07:55] LABS: INTERNATIONAL NORMALIZED RATIO 1.1 RATIO; PROTHROMBIN TIME - PATIENT 12.2 SEC (9.8-11.6)
[2017-09-24 07:58] LABS: AUTOMATED NEUTROPHIL # 3.2 TH/MM3 (1.8-7.7); BASOPHIL % 0.6 % (0.0-2.0); EOSINOPHIL # 0.3 TH/MM3 (0-0.4); EOSINOPHIL % 5.2 % (0.0-4.0); HEMATOCRIT 32.2 % (39.0-51.0); HEMO FLAGS DIFF FINAL; LYMPH % 21.9 % (9.0-44.0); LYMPHOCYTE # 1.1 TH/MM3 (1.0-4.8); MEAN CELL VOLUME 86.5 FL (80.0-100.0); MEAN CORPUSCULAR HGB CONC 33.6 % (32.0-36.0); NEUT % 62.3 % (16.0-70.0); PLATELET COUNT 119 TH/MM3 (150-450); RED BLOOD COUNT 3.72 MIL/MM3 (4.50-5.90); RED CELL DISTRIBUTION WIDTH 14.8 % (11.6-17.2); WHITE BLOOD COUNT 5.1 TH/MM3 (4.0-11.0)
[2017-09-24 08:00] VITALS: BP 121/72; PULSE 66; RESP 18; TEMP 97.2; O2SAT 96
[2017-09-24 08:26] LABS: ALT (GPT) 23 U/L (12-78); ANION GAP 3 MEQ/L (5-15); AST (GOT) 35 U/L (15-37); BICARBONATE 29.1 MEQ/L (21.0-32.0); BLOOD UREA NITROGEN 14 MG/DL (7-18); CHLORIDE 105 MEQ/L (98-107); GLOMERULAR FILTRATION RATE 118 ML/MIN (>89); POTASSIUM 4.2 MEQ/L (3.5-5.1); SODIUM (NA) 137 MEQ/L (136-145)
[2017-09-24 08:29] LABS: ALKALINE PHOSPHATASE 80 U/L (45-117); TOTAL BILIRUBIN ADULT 0.3 MG/DL (0.2-1.0)
[2017-09-24] MEDS: NICOTINE 14 MG/24 HR PATCH T-DERMAL SCH (08:49)
[2017-09-24] MEDS: REMOVE OLD PATCH T-DERMAL SCH (08:49)
[2017-09-24] MEDS: HEPARIN-D5W 25,000 U/250 ML 250 ML IV PRN (09:00)
[2017-09-24] MEDS ORDERED: LACTULOSE SYRUP 20 GM/30 ML CUP PO PRN (09:30)
[2017-09-24] MEDS ORDERED: BISACODYL 10 MG SUPP RECTAL PRN (09:30)
[2017-09-24] MEDS ORDERED: MAGNESIUM HYDROXIDE SUSP 30 ML CUP PO PRN (09:30)
[2017-09-24] MEDS ORDERED: SENNOSIDES 8.6 MG TAB PO PRN (09:30)
--- NOTE | 2017-09-24 09:31 | HHI.FPPN ---
Subjective Remarks Patient states that he is feeling fine this morning. His main concern is that he wants to shower. He will like to be able to get out of bed. His pain is well controlled. No fevers or chills, no chest pain, no shortness of breath, no abdominal pain, no nausea or vomiting. Patient is experiencing some constipation. (Katerin Devlin MD R1) Objective Vitals Vital Signs Date Time Temp Pulse Resp B/P (MAP) Pulse Ox O2 Delivery O2 Flow Rate FiO2 09/24/17 08:00 97.2 66 18 121/72 (88) 96 09/23/17 23:48 97.5 85 20 120/68 (85) 97 09/23/17 20:12 97.4 80 18 123/82 (96) 98 09/23/17 16:00 97.6 70 18 129/72 (91) 98 09/23/17 13:55 18 09/23/17 12:00 96.9 72 17 131/72 (91) 98 I/O 09/23/17 09/23/17 09/23/17 09/24/17 09/24/17 09/24/17 07:00 15:00 23:00 07:00 15:00 23:00 Intake Total 680 ml 975 ml 680 ml Output Total 1200 ml 1250 ml 1600 ml Balance -520 ml -275 ml -920 ml Intake Oral 680 ml 975 ml 680 ml Output Urine Total 1200 ml 1250 ml 1600 ml # Bowel Movements 0 (Katerin Devlin MD R1) Result Diagram: 09/24/17 0605 09/24/17 0605 Imaging Last Impressions Lower Extremity Ultrasound 09/20/17 1330 Signed Impressions: Service Date/Time: Wednesday, September 20, 2017 13:28 - CONCLUSION: Diffuse occlusive DVT. Vega London Jr., MD Lumbar Spine CT 09/20/17 1113 Signed Impressions: Service Date/Time: Wednesday, September 20, 2017 11:25 - CONCLUSION: 1. Mild disc bulge at the L4-5 level. It is very prominent ligamentum flavum hypertrophy. These changes cause at least mild narrowing of the thecal sac. 2. Facet hypertrophy at the L3-L4 and L4-L5 levels Darian Almanza MD CT Angiography 09/20/17 0000 Signed Impressions: Service Date/Time: Wednesday, September 20, 2017 16:12 - CONCLUSION: 1. Negative for pulmonary embolus. Minimal emphysema at the lung apices. Mild dependent atelectasis in the lungs. Luciano Xie MD Objective Remarks GENERAL: Well-nourished, well-developed patient. SKIN: Warm and dry. Hyperpigmented skin of left lower leg. HEAD: Normocephalic. EYES: No scleral icterus. No injection or drainage. NECK: Supple, trachea midline. No JVD or lymphadenopathy. CARDIOVASCULAR: Regular rate and rhythm without murmurs, gallops, or rubs. RESPIRATORY: Breath sounds equal bilaterally. No accessory muscle use. Diffuse wheezes bilaterally GASTROINTESTINAL: Abdomen soft, non-tender, nondistended. EXTREMITIES: No cyanosis..edema of total right leg with skin tightness that has improved since yesterday. No calf tenderness. Negative Homans sign bilaterally. NEUROLOGICAL: Awake, alert, and oriented x 3. Non-focal. (Katerin Devlin MD R1) A/P Assessment and Plan Mr. Dozier is a 52-year-old male the past medical history of unprovoked DVT and PE presenting with extensive DVT of the right leg. CTA was negative for pulmonary embolus. He is being admitted to inpatient for anticoagulation and workup. Discharge Planning upon therapeutic INR levels (Katerin Devlin MD R1) Attending Attestation Patient seen and examined. Case reviewed and discussed with the resident team. Agree with plan of care as discussed with me and documented in the resident note. (Chiara Altamirano MD) Problem List: (1) DVT (deep venous thrombosis) ICD Codes: I82.409 - DVT (deep venous thrombosis) Status: Acute Plan: Patient has a history of unprovoked DVT and PE in 2012. IVC filter was placed. He was started on Coumadin which he stopped taking one year ago. No sign of PE on CTA 09/20. He will need indefinite anticoagulation because of his history. US Right Leg Venous Doppler- Echogenic noncompressible material is seen extending from the common femoral vein to the below-knee popliteal vein. This is essentially occlusive throughout. Thrombus is also seen at the junction of the greater saphenous vein with the common femoral vein. This is nearly occlusive. * Hematology consulted * would be best served by one of the modern anticoagulants such as Xarelto 20 milligrams a day or apixaban 5 milligrams a day as opposed to Coumadin. However , pt does not have money or insurance. * INR between 2 and 3 indefinitely * at a high risk of recurrent venous thrombosis given that the second unprovoked venous thrombosis and is extensive. * Case management consulted * Heparin drip titrated per protocol- currently therapeutic * Warfarin 5mg po qD- INR at 1.0 on 09/23, increased to 10mg on 09/24 * Daily INRs (goal between 2 and 3) * Will consult Vascular surgery for further recommendations on treatment, we appreciate your recs * Compression for symptom relief (compression hose toes to groins) - wear every day * No indication for intervention given only modest symptoms as risk/benefits not great for chronic DVT * Follow-up appointment in one month with Dr. Sainz (2) Tobacco dependence syndrome Status: Chronic Plan: Pt has a 40 pack year history. Interested in quitting. * Nicotine patch * Referral to the [place] Quit line (3) FEN Status: Acute Plan: Fluids: po hydration Electrolytes: monitor and replete as needed Nutrition: heart healthy diet GI ppx: PRN meds SDW Dr. Rodríguez, Dr. Perri Nj, and Dr. Devlin (Katerin Devlin MD R1) Katerin Devlin MD R1 Sep 24, 2017 09:31 Chiara Altamirano MD Sep 24, 2017 21:00
[2017-09-24] MEDS: DOCUSATE SODIUM 50 MG/SENNA 8.6 MG TAB PO SCH ×2 (11:41→21:33)
[2017-09-24 12:00] VITALS: BP 121/82; PULSE 78; RESP 19; TEMP 97.3; O2SAT 96
[2017-09-24 12:27] LABS: APTT (PATIENT) 51.8 SEC (24.3-30.1)
[2017-09-24] MEDS: WARFARIN SOD 10 MG TAB PO SCH (15:03)
[2017-09-24 16:00] VITALS: BP 109/73; PULSE 77; RESP 19; TEMP 97.6; O2SAT 95
[2017-09-24 20:43] VITALS: BP 137/97; PULSE 85; RESP 18; TEMP 96.5; O2SAT 98
[2017-09-25 00:38] VITALS: BP 133/79; PULSE 78; RESP 18; TEMP 97.6; O2SAT 96
[2017-09-25] MEDS: HEPARIN-D5W 25,000 U/250 ML 250 ML IV PRN ×2 (02:07→18:27)
[2017-09-25 08:00] VITALS: BP 115/84; PULSE 74; RESP 18; TEMP 97.6; O2SAT 95
[2017-09-25] MEDS: SODIUM CHLORIDE 0.9% FLUSH 10 ML FLUSH IV FLUSH SCH ×2 (09:00→20:31)
[2017-09-25] MEDS: REMOVE OLD PATCH T-DERMAL SCH (09:00)
[2017-09-25 09:06] LABS: AUTOMATED NEUTROPHIL # 3.1 TH/MM3 (1.8-7.7); BASOPHIL % 0.7 % (0.0-2.0); EOSINOPHIL # 0.3 TH/MM3 (0-0.4); EOSINOPHIL % 4.9 % (0.0-4.0); HEMATOCRIT 37.2 % (39.0-51.0); HEMO FLAGS DIFF FINAL; LYMPH % 23.9 % (9.0-44.0); LYMPHOCYTE # 1.3 TH/MM3 (1.0-4.8); MEAN CELL VOLUME 87.7 FL (80.0-100.0); MEAN CORPUSCULAR HEMOGLOBIN 28.6 PG (27.0-34.0); MEAN CORPUSCULAR HGB CONC 32.6 % (32.0-36.0); MONO % 13.3 % (0.0-8.0); NEUT % 57.2 % (16.0-70.0); PLATELET COUNT 135 TH/MM3 (150-450); RED BLOOD COUNT 4.24 MIL/MM3 (4.50-5.90); RED CELL DISTRIBUTION WIDTH 15.2 % (11.6-17.2); WHITE BLOOD COUNT 5.3 TH/MM3 (4.0-11.0)
[2017-09-25 09:10] LABS: INTERNATIONAL NORMALIZED RATIO 1.3 RATIO; PROTHROMBIN TIME - PATIENT 14.3 SEC (9.8-11.6)
[2017-09-25 09:13] LABS: APTT (PATIENT) 66.2 SEC (24.3-30.1)
[2017-09-25] MEDS: DOCUSATE SODIUM 50 MG/SENNA 8.6 MG TAB PO SCH ×2 (09:53→20:31)
[2017-09-25] MEDS: NICOTINE 14 MG/24 HR PATCH T-DERMAL SCH (09:53)
[2017-09-25] MEDS: ACETAMINOPHEN/HYDROcodone 325 MG/5 MG TAB PO PRN ×2 (11:49→16:24)
[2017-09-25 12:00] VITALS: BP 132/86; PULSE 76; RESP 18; TEMP 98.6; O2SAT 97
--- NOTE | 2017-09-25 14:45 | HHI.FPPN ---
Subjective Remarks Patient was seen and examined this morning. He has been having about the room and is currently moving from bed to chair without difficulty. He did scratch his right calf yesterday with very minimal bleeding. Pain is improving and he is noted to be titrating down on his pain medication on his own because of his constipation. He denies any abdominal pain with it but notes he has not had a bowel movement in 4-5 days despite getting oral laxatives this hospital stay. No suppositories have been tried. (Perri Nj MD R2) Objective Vitals Vital Signs Date Time Temp Pulse Resp B/P (MAP) Pulse Ox O2 Delivery O2 Flow Rate FiO2 09/25/17 12:00 98.6 76 18 132/86 (101) 97 09/25/17 08:00 97.6 74 18 115/84 (94) 95 09/25/17 00:38 97.6 78 18 133/79 (97) 96 09/24/17 20:43 96.5 85 18 137/97 (110) 98 09/24/17 16:00 97.6 77 19 109/73 (85) 95 I/O 09/24/17 09/24/17 09/24/17 09/25/17 09/25/17 09/25/17 07:00 15:00 23:00 07:00 15:00 23:00 Intake Total 680 ml 1078 ml Output Total 1600 ml 1600 ml 700 ml Balance -920 ml -522 ml -700 ml Intake Oral 680 ml 960 ml IV Total 118 ml Output Urine Total 1600 ml 1600 ml 700 ml # Bowel Movements 0 (Perri Nj MD R2) Result Diagram: 09/25/17 0638 09/24/17 0605 Imaging Last Impressions Lower Extremity Ultrasound 09/20/17 1330 Signed Impressions: Service Date/Time: Wednesday, September 20, 2017 13:28 - CONCLUSION: Diffuse occlusive DVT. Vega London Jr., MD Lumbar Spine CT 09/20/17 1113 Signed Impressions: Service Date/Time: Wednesday, September 20, 2017 11:25 - CONCLUSION: 1. Mild disc bulge at the L4-5 level. It is very prominent ligamentum flavum hypertrophy. These changes cause at least mild narrowing of the thecal sac. 2. Facet hypertrophy at the L3-L4 and L4-L5 levels Darian Almanza MD CT Angiography 09/20/17 0000 Signed Impressions: Service Date/Time: Wednesday, September 20, 2017 16:12 - CONCLUSION: 1. Negative for pulmonary embolus. Minimal emphysema at the lung apices. Mild dependent atelectasis in the lungs. Luciano Xie MD Objective Remarks GENERAL: Well-nourished, well-developed male patient in no apparent distress. SKIN: Warm and dry. Hyperpigmented skin of left lower leg. HEAD: Normocephalic. Atraumatic. EYES: No scleral icterus. No injection or drainage. NECK: Supple, trachea midline. No JVD or lymphadenopathy. CARDIOVASCULAR: Regular rate and rhythm without murmurs, gallops, or rubs. RESPIRATORY: Breath sounds equal bilaterally. No accessory muscle use. Diffuse wheezes bilaterally. GASTROINTESTINAL: Abdomen soft, non-tender, nondistended. EXTREMITIES: No cyanosis. Edema of total right leg with skin tightness that has improved daily. It is 1+ and pitting to just beyond the knee. No calf tenderness. Negative Homans sign bilaterally. NEUROLOGICAL: Awake, alert, and oriented x 3. Non-focal. Medications and IVs Inpatient Medications Acetaminophen/ Hydrocodone Bitart (Natick 5-325 Mg) 2 tab Q4H PRN PO PAIN SCALE 6 TO 10 Last administered on 09/25/17 11:49; Start 09/20/17 at 15:15 Bisacodyl (Dulcolax Supp) 10 mg DAILY PRN RECTAL SEVERE CONSITIPATION; Start 09/24/17 at 09:30 Heparin Sodium (Porcine) (Heparin Inj) 9,100 units ONCE ONCE IV PUSH Last administered on 09/20/17 15:50; Start 09/20/17 at 15:30; Stop 09/20/17 at 15 :34; Status DC Heparin Sodium/ Dextrose 250 ml @ 20.52 mls/ hr TITRATE PRN IV Coagulation management Last administered on 09/25/17 02:07; Start 09/20/17 at 15:15 Ketorolac Tromethamine (Toradol Inj) 30 mg ONCE ONCE IV PUSH Last administered on 09/20/17 11:30; Start 09/20/17 at 11:15; Stop 09/20/17 at 11 :16; Status DC Lactulose (Lactulose Liq) 30 ml DAILY PRN PO SEVERE CONSITIPATION Last administered on 09/25/17 09:53; Start 09/24/17 at 09:30 Magnesium Hydroxide (Milk Of Magnrenee Liq) 30 ml Q12H PRN PO Mild constipation Last administered on 09/24/17 17:26; Start 09/24/17 at 09:30 Miscellaneous Information 1 DAILY T-DERMAL Last administered on 09/24/17 08: 49; Start 09/21/17 at 09:00 Morphine Sulfate (Morphine Inj) 2 mg Q4H PRN IV PUSH BREAKTHROUGH PAIN Last administered on 09/24/17 23:17; Start 09/20/17 at 15:15 Nicotine (Habitrol 14 Mg Patch.24 Hr) 1 patch DAILY T-DERMAL Last administered on 09/25/17 09:53; Start 09/20/17 at 15:45 Patient Medication Teaching (Coumadin Booklet) 1 ONCE ONCE OTHER Last administered on 09/24/17 11:42; Start 09/24/17 at 11:30; Stop 09/24/17 at 11 :31; Status DC Senna/Docusate Sodium (Savan[place]-Colace) 1 tab BID PO Last administered on 09:53; Start 09/24/17 at 10:00 Sennosides (Senokot) 17.2 mg Q12H PRN PO Moderate constipation Last administered on 09/24/17 17:26; Start 09/24/17 at 09:30 Sodium Chloride (NS Flush) 2 ml BID IV FLUSH Last administered on 09/25/17 09 :00; Start 09/20/17 at 21:00 Warfarin Sodium (Coumadin) 10 mg DAILY@1600 PO Last administered on 09/24/17 15:03; Start 09/24/17 at 16:00 (Perri Nj MD R2) Urinary Catheter: No (Perri Nj MD R2) Vascular Central Line Catheter: No (Perri Nj MD R2) A/P Assessment and Plan Mr. Dozier is a 52-year-old male the past medical history of unprovoked DVT and PE who presented with extensive DVT of the right leg. CTA was negative for pulmonary embolus. He was admitted to inpatient for anticoagulation and bridging to warfarin therapy. He is not a candidate for novel oral anticoagulants given inability to afford them (lacks insurance). Discharge Planning We'll discharge to home once INR is therapeutic on warfarin. He has been given blue card and will be able to follow-up upon discharge with community clinic, case management assisting with discharge plan (Perri Nj MD R2) Attending Attestation Patient seen and examined. Case reviewed and discussed with the resident team. Agree with plan of care as discussed with me and documented in the resident note. (Chiara Altamirano MD) Problem List: (1) DVT (deep venous thrombosis) ICD Codes: I82.409 - DVT (deep venous thrombosis) Status: Acute Plan: Warfarin 5mg po qD- INR at 1.0 on 09/23, increased to 10mg on 09/24 with repeat INR 1.3, will continue 10 mg daily dosing with repeat INR in the morning Continue heparin drip for bridging Pain control with [place] 5-325mg pain 1-5, [place] 10-650mg pain 6-10 and morphine 2 mg every 4 hours IV when necessary for breakthrough Hospital course: Patient has a history of unprovoked DVT and PE in 2012. IVC filter was placed. He was started on Coumadin which he stopped taking one year ago. No sign of PE on CTA 09/20. He will need indefinite anticoagulation because of his history. US Right Leg Venous Doppler- Echogenic noncompressible material is seen extending from the common femoral vein to the below-knee popliteal vein. This is essentially occlusive throughout. Thrombus is also seen at the junction of the greater saphenous vein with the common femoral vein. This is nearly occlusive. * Hematology consulted * would be best served by one of the modern anticoagulants such as Xarelto 20 milligrams a day or apixaban 5 milligrams a day as opposed to Coumadin. However , pt does not have money or insurance. * INR between 2 and 3 indefinitely * at a high risk of recurrent venous thrombosis given that the second unprovoked venous thrombosis and is extensive. * Case management consulted * Heparin drip titrated per protocol- currently therapeutic * Daily INRs (goal between 2 and 3) * Will consult Vascular surgery for further recommendations on treatment, we appreciate your recs * Compression for symptom relief (compression hose toes to groins) - wear every day * No indication for intervention given only modest symptoms as risk/benefits not great for chronic DVT * Follow-up appointment in one month with Dr. Sainz (2) Tobacco dependence syndrome Status: Chronic Plan: Pt has a 40 pack year history. Interested in quitting. * Nicotine patch * Referral to the [place] Quit line (3) Constipation due to pain medication ICD Codes: K59.03 - Drug induced constipation Status: Acute Plan: Patient is no senna have a bowel movement in the last 4-5 days. He is getting Savan[place]-Colace and also tried milk of magnesia yesterday with no bowel movement. He is passing flatus and does not have any discomfort. * Lactulose today per protocol, will monitor * We'll give suppository if indicated, patient has refused thus far * Continue pain control as above, but patient was counseled and has been reducing frequency of medication due to likelihood of opioid-induced constipation (4) FEN Status: Acute Plan: Fluids: PO hydration Electrolytes: monitor and replete as needed Nutrition: heart healthy diet GI ppx: Not indicated (Perri Nj MD R2) Perri Nj MD R2 Sep 25, 2017 14:45 Chiara Altamirano MD Sep 25, 2017 15:28
[2017-09-25] MEDS: MORPHINE SULFATE 4 MG/ML INJ IV PUSH PRN ×2 (15:05→20:31)
[2017-09-25] MEDS: WARFARIN SOD 10 MG TAB PO SCH (16:22)
[2017-09-25 16:31] VITALS: BP 120/72; PULSE 74; RESP 18; TEMP 97.7; O2SAT 97
[2017-09-25 20:54] VITALS: BP 127/92; PULSE 77; RESP 18; TEMP 96.5; O2SAT 98
[2017-09-25 23:46] VITALS: BP 123/78; PULSE 80; RESP 20; TEMP 96.9; O2SAT 97
[2017-09-26 04:46] LABS: HEMATOCRIT 32.9 % (39.0-51.0); MEAN CELL VOLUME 86.3 FL (80.0-100.0); MEAN CORPUSCULAR HEMOGLOBIN 28.9 PG (27.0-34.0); MEAN CORPUSCULAR HGB CONC 33.5 % (32.0-36.0); PLATELET COUNT 127 TH/MM3 (150-450); RED BLOOD COUNT 3.81 MIL/MM3 (4.50-5.90); RED CELL DISTRIBUTION WIDTH 14.8 % (11.6-17.2); REVIEW FLAG FINAL; WHITE BLOOD COUNT 5.7 TH/MM3 (4.0-11.0)
[2017-09-26 04:53] LABS: INTERNATIONAL NORMALIZED RATIO 1.6 RATIO; PROTHROMBIN TIME - PATIENT 17.9 SEC (9.8-11.6)
[2017-09-26] MEDS: ACETAMINOPHEN/HYDROcodone 325 MG/5 MG TAB PO PRN ×3 (06:57→15:21)
[2017-09-26 08:00] VITALS: BP 117/69; PULSE 78; RESP 18; TEMP 97.3; O2SAT 97
--- NOTE | 2017-09-26 08:04 | HHI.FPPN ---
Subjective Remarks Patient was seen and examined this morning. No new complaints but eager to go home. Had one bowel movement. Eating food from outside hospital and requesting regular diet. No bleeding. (Perri Nj MD R2) Objective Vitals Vital Signs Date Time Temp Pulse Resp B/P (MAP) Pulse Ox O2 Delivery O2 Flow Rate FiO2 09/25/17 23:46 96.9 80 20 123/78 (93) 97 09/25/17 20:54 96.5 77 18 127/92 (104) 98 09/25/17 17:25 16 09/25/17 16:31 97.7 74 18 120/72 (88) 97 09/25/17 15:10 16 09/25/17 12:00 98.6 76 18 132/86 (101) 97 I/O 09/25/17 09/25/17 09/25/17 09/26/17 09/26/17 09/26/17 07:00 15:00 23:00 07:00 15:00 23:00 Intake Total 480 ml 250 ml Output Total 700 ml 1000 ml 300 ml Balance -700 ml -520 ml 250 ml -300 ml Intake Oral 480 ml IV Total 250 ml Output Urine Total 700 ml 1000 ml 300 ml # Bowel Movements 1 (Perri Nj MD R2) Result Diagram: 09/26/17 0432 09/24/17 0605 Imaging Last Impressions Lower Extremity Ultrasound 09/20/17 1330 Signed Impressions: Service Date/Time: Wednesday, September 20, 2017 13:28 - CONCLUSION: Diffuse occlusive DVT. Vega London Jr., MD Lumbar Spine CT 09/20/17 1113 Signed Impressions: Service Date/Time: Wednesday, September 20, 2017 11:25 - CONCLUSION: 1. Mild disc bulge at the L4-5 level. It is very prominent ligamentum flavum hypertrophy. These changes cause at least mild narrowing of the thecal sac. 2. Facet hypertrophy at the L3-L4 and L4-L5 levels Darian Almanza MD CT Angiography 09/20/17 0000 Signed Impressions: Service Date/Time: Wednesday, September 20, 2017 16:12 - CONCLUSION: 1. Negative for pulmonary embolus. Minimal emphysema at the lung apices. Mild dependent atelectasis in the lungs. Luciano Xie MD Objective Remarks GENERAL: Well-nourished, well-developed male patient in no apparent distress. SKIN: Warm and dry. Hyperpigmented skin of left lower leg. HEAD: Normocephalic. Atraumatic. EYES: No scleral icterus. No injection or drainage. NECK: Supple, trachea midline. No JVD or lymphadenopathy. CARDIOVASCULAR: Regular rate and rhythm without murmurs, gallops, or rubs. RESPIRATORY: Breath sounds equal bilaterally. No accessory muscle use. Diffuse wheezes bilaterally. GASTROINTESTINAL: Abdomen soft, non-tender, nondistended. EXTREMITIES: No cyanosis. Edema of total right leg with skin tightness that has improved daily. It is 1+ and pitting to just beyond the knee. No calf tenderness. Negative Homans sign bilaterally. NEUROLOGICAL: Awake, alert, and oriented x 3. Non-focal. Medications and IVs Inpatient Medications Acetaminophen/ Hydrocodone Bitart ([place] 5-325 Mg) 2 tab Q4H PRN PO PAIN SCALE 6 TO 10 Last administered on 09/26/17 06:57; Start 09/20/17 at 15:15 Bisacodyl (Dulcolax Supp) 10 mg DAILY PRN RECTAL SEVERE CONSITIPATION; Start 09/24/17 at 09:30 Heparin Sodium (Porcine) (Heparin Inj) 9,100 units ONCE ONCE IV PUSH Last administered on 09/20/17 15:50; Start 09/20/17 at 15:30; Stop 09/20/17 at 15 :34; Status DC Heparin Sodium/ Dextrose 250 ml @ 20.52 mls/ hr TITRATE PRN IV Coagulation management Last administered on 09/25/17 18:27; Start 09/20/17 at 15:15 Ketorolac Tromethamine (Toradol Inj) 30 mg ONCE ONCE IV PUSH Last administered on 09/20/17 11:30; Start 09/20/17 at 11:15; Stop 09/20/17 at 11 :16; Status DC Lactulose (Lactulose Liq) 30 ml DAILY PRN PO SEVERE CONSITIPATION Last administered on 09/25/17 09:53; Start 09/24/17 at 09:30 Magnesium Hydroxide (Milk Of Magnesia Liq) 30 ml Q12H PRN PO Mild constipation Last administered on 09/24/17 17:26; Start 09/24/17 at 09:30 Miscellaneous Information 1 DAILY T-DERMAL Last administered on 09/24/17 08: 49; Start 09/21/17 at 09:00 Morphine Sulfate (Morphine Inj) 2 mg Q4H PRN IV PUSH BREAKTHROUGH PAIN Last administered on 09/25/17 20:31; Start 09/20/17 at 15:15 Nicotine (Habitrol 14 Mg Patch.24 Hr) 1 patch DAILY T-DERMAL Last administered on 09/25/17 09:53; Start 09/20/17 at 15:45 Patient Medication Teaching (Coumadin Booklet) 1 ONCE ONCE OTHER Last administered on 09/24/17 11:42; Start 09/24/17 at 11:30; Stop 09/24/17 at 11 :31; Status DC Senna/Docusate Sodium ([place]-Colace) 1 tab BID PO Last administered on 09:53; Start 09/24/17 at 10:00 Sennosides (Senokot) 17.2 mg Q12H PRN PO Moderate constipation Last administered on 09/24/17 17:26; Start 09/24/17 at 09:30 Sodium Chloride (NS Flush) 2 ml BID IV FLUSH Last administered on 09/25/17 20 :31; Start 09/20/17 at 21:00 Warfarin Sodium (Coumadin) 10 mg DAILY@1600 PO Last administered on 09/25/17 16:22; Start 09/24/17 at 16:00 (Perri Nj MD R2) Urinary Catheter: No (Perri Nj MD R2) Vascular Central Line Catheter: No (Perri Nj MD R2) A/P Assessment and Plan Mr. Dozier is a 52-year-old male the past medical history of unprovoked DVT and PE who presented with extensive DVT of the right leg. CTA was negative for pulmonary embolus. He was admitted to inpatient for anticoagulation and bridging to warfarin therapy. He is not a candidate for novel oral anticoagulants given inability to afford them (lacks insurance). Discharge Planning We'll discharge to home once INR is therapeutic on warfarin. He has been given blue card and will be able to follow-up upon discharge with community clinic, case management assisting with discharge plan (Perri Nj MD R2) Attending Attestation Patient seen and examined. Case reviewed and discussed with the resident team. Agree with plan of care as discussed with me and documented in the resident note. (Chiara Altamirano MD) Problem List: (1) DVT (deep venous thrombosis) ICD Codes: I82.409 - DVT (deep venous thrombosis) Status: Acute Plan: Warfarin 5mg po qD until 09/23, increased to 10mg on 09/24. INR 1.6 today. Will continue 10mg dosing. Expect to be therapeutic tomorrow. Continue heparin drip for bridging Pain control with [place] 5-325mg pain 1-5, [place] 10-650mg pain 6-10 and morphine 2 mg every 4 hours IV when necessary for breakthrough Hospital course: Patient has a history of unprovoked DVT and PE in 2012. IVC filter was placed. He was started on Coumadin which he stopped taking one year ago. No sign of PE on CTA 09/20. He will need indefinite anticoagulation because of his history. US Right Leg Venous Doppler- Echogenic noncompressible material is seen extending from the common femoral vein to the below-knee popliteal vein. This is essentially occlusive throughout. Thrombus is also seen at the junction of the greater saphenous vein with the common femoral vein. This is nearly occlusive. * Hematology consulted * would be best served by one of the modern anticoagulants such as Xarelto 20 milligrams a day or apixaban 5 milligrams a day as opposed to Coumadin. However , pt does not have money or insurance. * INR between 2 and 3 indefinitely * at a high risk of recurrent venous thrombosis given that the second unprovoked venous thrombosis and is extensive. * Case management consulted * Heparin drip titrated per protocol- currently therapeutic * Daily INRs (goal between 2 and 3) * Will consult Vascular surgery for further recommendations on treatment, we appreciate your recs * Compression for symptom relief (compression hose toes to groins) - wear every day * No indication for intervention given only modest symptoms as risk/benefits not great for chronic DVT * Follow-up appointment in one month with Dr. Sainz (2) Tobacco dependence syndrome Status: Chronic Plan: Pt has a 40 pack year history. Interested in quitting. * Nicotine patch * Referral to the [place] Quit line (3) Constipation due to pain medication ICD Codes: K59.03 - Drug induced constipation Status: Acute Plan: One bowel movement in last 24hr. * Continue protocol * Continue pain control as above, but patient was counseled and has been reducing frequency of medication due to likelihood of opioid-induced constipation (4) FEN Status: Acute Plan: Fluids: PO hydration Electrolytes: monitor and replete as needed Nutrition: heart healthy diet GI ppx: Not indicated (Perri Nj MD R2) Perri Nj MD R2 Sep 26, 2017 08:04 Chiara Altamirano MD Sep 26, 2017 11:24
[2017-09-26] MEDS: REMOVE OLD PATCH T-DERMAL SCH (09:00)
[2017-09-26] MEDS: SODIUM CHLORIDE 0.9% FLUSH 10 ML FLUSH IV FLUSH SCH ×2 (09:00→21:00)
[2017-09-26] MEDS: DOCUSATE SODIUM 50 MG/SENNA 8.6 MG TAB PO SCH ×2 (09:00→21:00)
[2017-09-26] MEDS: NICOTINE 14 MG/24 HR PATCH T-DERMAL SCH (11:16)
[2017-09-26 12:00] VITALS: BP 118/67; PULSE 71; RESP 17; TEMP 95.8; O2SAT 96
[2017-09-26] MEDS: MORPHINE SULFATE 4 MG/ML INJ IV PUSH PRN (12:26)
[2017-09-26] MEDS: HEPARIN-D5W 25,000 U/250 ML 250 ML IV PRN (12:28)
[2017-09-26 12:43] LABS: APTT (PATIENT) 69.9 SEC (24.3-30.1)
[2017-09-26] MEDS: WARFARIN SOD 10 MG TAB PO SCH (15:17)
[2017-09-26 16:00] VITALS: BP 133/71; PULSE 79; RESP 17; TEMP 96.4; O2SAT 99
[2017-09-26 20:00] VITALS: BP 118/66; PULSE 82; RESP 22; TEMP 97.5; O2SAT 95
[2017-09-27] VITALS (7 sets, daily range): BP systolic 114–127; BP diastolic 70–77; PULSE 72–86; RESP 17–20; TEMP 97.1–98.2; O2SAT 96–98
[2017-09-27] MEDS: HEPARIN-D5W 25,000 U/250 ML 250 ML IV PRN ×2 (04:54→23:46)
[2017-09-27 06:54] LABS: INTERNATIONAL NORMALIZED RATIO 1.8 RATIO; PROTHROMBIN TIME - PATIENT 20.7 SEC (9.8-11.6)
[2017-09-27 06:57] LABS: APTT (PATIENT) 76.2 SEC (24.3-30.1)
--- NOTE | 2017-09-27 08:38 | HHI.FPPN ---
Subjective Remarks Pt states that he is doing well this morning. He was expecting to go home today , but is comfortable with the plan thus far. He is having some pain, but stopped taking the pain medications because of the constipation that they caused. No bleeding, no CP, no shortness of breath, no abdominal pain, no nausea /vomiting, some constipation (straining to have a BM, none yesterday, will request to bring him prune juice). He is up walking around his room and will walk the halls today. (Katerin Devlin MD R1) Objective Vitals Vital Signs Date Time Temp Pulse Resp B/P (MAP) Pulse Ox O2 Delivery O2 Flow Rate FiO2 09/27/17 08:00 97.9 72 17 114/72 (86) 96 09/27/17 04:00 97.5 74 20 116/70 (85) 97 09/27/17 00:00 98.2 77 20 127/72 (90) 98 09/26/17 20:00 97.5 82 22 118/66 (83) 95 09/26/17 16:00 96.4 79 17 133/71 (91) 99 09/26/17 12:15 18 09/26/17 12:00 95.8 71 17 118/67 (84) 96 I/O 09/26/17 09/26/17 09/26/17 09/27/17 09/27/17 09/27/17 07:00 15:00 23:00 07:00 15:00 23:00 Intake Total 1200 ml 970 ml Output Total 300 ml 400 ml Balance -300 ml 1200 ml 970 ml -400 ml Intake Oral 1200 ml 720 ml IV Total 250 ml Output Urine Total 300 ml 400 ml # Voids 5 2 # Bowel Movements 0 (Katerin Devlin MD R1) Result Diagram: 09/26/17 0432 09/24/17 0605 Imaging Last Impressions Lower Extremity Ultrasound 09/20/17 1330 Signed Impressions: Service Date/Time: Wednesday, September 20, 2017 13:28 - CONCLUSION: Diffuse occlusive DVT. Vega London Jr., MD Lumbar Spine CT 09/20/17 1113 Signed Impressions: Service Date/Time: Wednesday, September 20, 2017 11:25 - CONCLUSION: 1. Mild disc bulge at the L4-5 level. It is very prominent ligamentum flavum hypertrophy. These changes cause at least mild narrowing of the thecal sac. 2. Facet hypertrophy at the L3-L4 and L4-L5 levels Darian Almanza MD CT Angiography 09/20/17 0000 Signed Impressions: Service Date/Time: Friday, September 20, 2017 16:12 - CONCLUSION: 1. Negative for pulmonary embolus. Minimal emphysema at the lung apices. Mild dependent atelectasis in the lungs. Luciano Xie MD Objective Remarks GENERAL: Well-nourished, well-developed male patient in no apparent distress. SKIN: Warm and dry. Hyperpigmented skin of left lower leg. HEAD: Normocephalic. Atraumatic. EYES: No scleral icterus. No injection or drainage. NECK: Supple, trachea midline. No JVD or lymphadenopathy. CARDIOVASCULAR: Regular rate and rhythm without murmurs, gallops, or rubs. RESPIRATORY: Breath sounds equal bilaterally. No accessory muscle use. Diffuse wheezes bilaterally. GASTROINTESTINAL: Abdomen soft, non-tender, nondistended. EXTREMITIES: No cyanosis. 1+ pitting edema of total right leg with skin tightness to above knee that has improved daily. No calf tenderness. NEUROLOGICAL: Awake, alert, and oriented x 3. Non-focal. (Katerin Devlin MD R1) A/P Assessment and Plan Mr. Dozier is a 52-year-old male with past medical history of unprovoked DVT and PE who presented with extensive DVT of the right leg. CTA was negative for pulmonary embolus. He was admitted to inpatient for anticoagulation and bridging to warfarin therapy. He is not a candidate for novel oral anticoagulants given inability to afford them (lacks insurance). Discharge Planning We'll discharge to home once INR is therapeutic on warfarin. He has been given blue card and will be able to follow-up upon discharge with community clinic, case management assisting with discharge plan (Katerin Devlin MD R1) Attending Attestation Patient seen and examined. Case reviewed and discussed with the resident team. Agree with plan of care as discussed with me and documented in the resident note. (Chiara Altamirano MD) Problem List: (1) DVT (deep venous thrombosis) ICD Codes: I82.409 - DVT (deep venous thrombosis) Status: Acute Plan: Warfarin 5mg po qD until 09/23, increased to 10mg on 10/25. INR 1.8 today. Will continue 10mg dosing. Expect to be therapeutic tomorrow. Continue heparin drip for bridging Pain control with [place] 5-325mg pain 1-5, [place] 10-650mg pain 6-10 and morphine 2 mg every 4 hours IV when necessary for breakthrough Hospital course: Patient has a history of unprovoked DVT and PE in 2012. IVC filter was placed. He was started on Coumadin which he stopped taking one year ago. No sign of PE on CTA 09/20. He will need indefinite anticoagulation because of his history. US Right Leg Venous Doppler- Echogenic noncompressible material is seen extending from the common femoral vein to the below-knee popliteal vein. This is essentially occlusive throughout. Thrombus is also seen at the junction of the greater saphenous vein with the common femoral vein. This is nearly occlusive. * Hematology consulted * would be best served by one of the modern anticoagulants such as Xarelto 20 milligrams a day or apixaban 5 milligrams a day as opposed to Coumadin. However , pt does not have money or insurance. * INR between 2 and 3 indefinitely * at a high risk of recurrent venous thrombosis given that the second unprovoked venous thrombosis and is extensive. * Case management consulted * Heparin drip titrated per protocol- currently therapeutic * Daily INRs (goal between 2 and 3) * Will consult Vascular surgery for further recommendations on treatment, we appreciate your recs * Compression for symptom relief (compression hose toes to groins) - wear every day * No indication for intervention given only modest symptoms as risk/benefits not great for chronic DVT * Follow-up appointment in one month with Dr. Sainz (2) Tobacco dependence syndrome Status: Chronic Plan: Pt has a 40 pack year history. Interested in quitting. * Nicotine patch * Referral to the [place] Quit line (3) Constipation due to pain medication ICD Codes: K59.03 - Drug induced constipation Status: Acute Plan: No bowel movement in last 24hr. * Continue protocol * Continue pain control as above, but patient was counseled and has been reducing frequency of medication due to likelihood of opioid-induced constipation (4) FEN Status: Acute Plan: Fluids: PO hydration Electrolytes: monitor and replete as needed Nutrition: heart healthy diet GI ppx: Not indicated (Katerin Devlin MD R1) Katerin Devlin MD R1 Sep 27, 2017 08:38 Chiara Altamirano MD Sep 27, 2017 09:32
[2017-09-27] MEDS: DOCUSATE SODIUM 50 MG/SENNA 8.6 MG TAB PO SCH ×2 (09:00→19:57)
[2017-09-27] MEDS: SODIUM CHLORIDE 0.9% FLUSH 10 ML FLUSH IV FLUSH SCH ×2 (09:00→19:53)
[2017-09-27] MEDS: REMOVE OLD PATCH T-DERMAL SCH (09:00)
[2017-09-27] MEDS: NICOTINE 14 MG/24 HR PATCH T-DERMAL SCH (09:00)
[2017-09-27] MEDS: WARFARIN SOD 10 MG TAB PO SCH (17:55)
[2017-09-27 21:21] LABS: APTT (PATIENT) 61.1 SEC (24.3-30.1)
[2017-09-27] MEDS: ACETAMINOPHEN/HYDROcodone 325 MG/5 MG TAB PO PRN (22:12)
[2017-09-27] MEDS: MORPHINE SULFATE 4 MG/ML INJ IV PUSH PRN (23:42)
[2017-09-28 05:45] LABS: AUTOMATED NEUTROPHIL # 2.5 TH/MM3 (1.8-7.7); BASOPHIL % 0.9 % (0.0-2.0); EOSINOPHIL # 0.3 TH/MM3 (0-0.4); EOSINOPHIL % 6.4 % (0.0-4.0); HEMATOCRIT 33.9 % (39.0-51.0); HEMO FLAGS DIFF FINAL; LYMPH % 27.7 % (9.0-44.0); LYMPHOCYTE # 1.4 TH/MM3 (1.0-4.8); MEAN CELL VOLUME 87.2 FL (80.0-100.0); MEAN CORPUSCULAR HEMOGLOBIN 28.2 PG (27.0-34.0); MEAN CORPUSCULAR HGB CONC 32.4 % (32.0-36.0); MONO % 13.8 % (0.0-8.0); NEUT % 51.2 % (16.0-70.0); PLATELET COUNT 149 TH/MM3 (150-450); RED BLOOD COUNT 3.88 MIL/MM3 (4.50-5.90); WHITE BLOOD COUNT 4.9 TH/MM3 (4.0-11.0)
[2017-09-28 05:54] LABS: APTT (PATIENT) 62.5 SEC (24.3-30.1); PROTHROMBIN TIME - PATIENT 22.5 SEC (9.8-11.6)
[2017-09-28 08:00] VITALS: BP 116/82; PULSE 69; RESP 18; TEMP 97.4; O2SAT 100
[2017-09-28] MEDS ORDERED: WARF-21 PO ×2 (08:02→08:26)
--- NOTE | 2017-09-28 08:03 | HHI.DCPOC ---
Discharge Care Plan Diagnosis: (1) DVT (deep venous thrombosis) (2) Constipation due to pain medication Goals to Promote Your Health * To prevent worsening of your condition and complications * To maintain your health at the optimal level Directions to Meet Your Goals Take your medications as prescribed Follow your dietary instruction Follow activity as directed Keep your appointments as scheduled Take your immunizations and boosters as scheduled If your symptoms worsen call your PCP, if no PCP go to Urgent Care Center or Emergency Room Smoking is Dangerous to Your Health. Avoid second hand smoke Call the 24-hour hour crisis hotline for domestic abuse at Perri Nj MD R2 Sep 28, 2017 08:03
[2017-09-28] MEDS ORDERED: HYDR-3516 PO (08:25)
[2017-09-28] MEDS ORDERED: WARF-22 PO (08:27)
[2017-09-28] MEDS: NICOTINE 14 MG/24 HR PATCH T-DERMAL SCH (09:00)
[2017-09-28] MEDS: SODIUM CHLORIDE 0.9% FLUSH 10 ML FLUSH IV FLUSH SCH (09:00)
[2017-09-28] MEDS: REMOVE OLD PATCH T-DERMAL SCH (09:00)
[2017-09-28] MEDS: DOCUSATE SODIUM 50 MG/SENNA 8.6 MG TAB PO SCH (09:00)
--- NOTE | 2017-09-28 09:24 | HHI.FF ---
Face to Face Verification Diagnosis: (1) DVT (deep venous thrombosis) Home Health Nursing Order: Medical education Signs/symptoms of disease process Medication education-adverse effect Nursing assessment with vital signs Instructions: Nursing checks for INR INR goal: 2-3 I have seen patient Abdelrahman Dozier on 09/28/17. My clinical findings support the need for the requested home health care services because: Ltd mobility - disease progression Deconditioned w/ increased weakness Limited ability to care for self High risk of falls I certify that my clinical findings support that this patient is homebound because: Unsteady gait/balance Unsafe to leave home unassisted Katerin Devlin MD R1 Sep 28, 2017 09:24
--- NOTE | 2017-09-28 09:59 | HHI.FPPN ---
Subjective Remarks Patient states that he is ready to go home today. He has no complaints. No fevers or chills, no chest pain, no shortness of breath, no abdominal pain, nausea or vomiting. He had 1 bowel movement yesterday. He states that he is going to try to quit smoking. He doesn't have any cigarettes at home. 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 He says that it will be hard because [place] [facility]. However, he is very serious about his health right now. Objective Vitals Vital Signs Date Time Temp Pulse Resp B/P (MAP) Pulse Ox O2 Delivery O2 Flow Rate FiO2 09/28/17 08:00 97.4 69 18 116/82 (93) 100 09/27/17 23:47 18 09/27/17 23:24 98.2 86 18 121/73 (89) 97 09/27/17 23:12 18 09/27/17 20:00 98.1 82 20 127/73 (91) 98 09/27/17 16:00 97.4 77 17 119/77 (91) 97 09/27/17 12:00 97.1 76 17 117/76 (90) 97 I/O 09/27/17 09/27/17 09/27/17 09/28/17 09/28/17 09/28/17 07:00 15:00 23:00 07:00 15:00 23:00 Intake Total 970 ml 240 ml 930 ml Output Total 400 ml 1200 ml Balance 970 ml -400 ml 240 ml -270 ml Intake Oral 720 ml 240 ml 680 ml IV Total 250 ml 250 ml Output Urine Total 400 ml 1200 ml # Voids 2 4 # Bowel Movements 0 Result Diagram: 09/28/17 0528 09/24/17 0605 Imaging Last Impressions Lower Extremity Ultrasound 09/20/17 1330 Signed Impressions: Service Date/Time: Wednesday, September 20, 2017 13:28 - CONCLUSION: Diffuse occlusive DVT. Vega London Jr., MD Lumbar Spine CT 09/20/17 1113 Signed Impressions: Service Date/Time: Wednesday, September 20, 2017 11:25 - CONCLUSION: 1. Mild disc bulge at the L4-5 level. It is very prominent ligamentum flavum hypertrophy. These changes cause at least mild narrowing of the thecal sac. 2. Facet hypertrophy at the L3-L4 and L4-L5 levels Darian Almanza MD CT Angiography 09/20/17 0000 Signed Impressions: Service Date/Time: Wednesday, September 20, 2017 16:12 - CONCLUSION: 1. Negative for pulmonary embolus. Minimal emphysema at the lung apices. Mild dependent atelectasis in the lungs. Luciano Xie MD Objective Remarks GENERAL: Well-nourished, well-developed male patient in no apparent distress. SKIN: Warm and dry. Hyperpigmented skin of left lower leg. HEAD: Normocephalic. Atraumatic. EYES: No scleral icterus. No injection or drainage. NECK: Supple, trachea midline. No JVD or lymphadenopathy. CARDIOVASCULAR: Regular rate and rhythm without murmurs, gallops, or rubs. RESPIRATORY: Breath sounds equal bilaterally. No accessory muscle use. Diffuse wheezes bilaterally. GASTROINTESTINAL: Abdomen soft, non-tender, nondistended. EXTREMITIES: No cyanosis. 1+ pitting edema of total right leg with skin tightness to above knee. No calf tenderness. NEUROLOGICAL: Awake, alert, and oriented x 3. Non-focal. A/P Assessment and Plan Mr. Dozier is a 52-year-old male with past medical history of unprovoked DVT and PE who presented with extensive DVT of the right leg. CTA was negative for pulmonary embolus. He was admitted to inpatient for anticoagulation and bridging to warfarin therapy. He is not a candidate for novel oral anticoagulants given inability to afford them (lacks insurance). Discharge Planning We'll discharge to home once INR is therapeutic on warfarin. He has been given blue card and will be able to follow-up upon discharge with community clinic, case management assisting with discharge plan Problem List: (1) DVT (deep venous thrombosis) ICD Codes: I82.409 - DVT (deep venous thrombosis) Status: Acute Plan: Warfarin 5mg po qD until 09/23, increased to 10mg on 09/24. INR 2.0, therapeutic, today. Home today. Continue heparin drip for bridging Pain control with [place] 5-325mg pain 1-5, [place] 10-650mg pain 6-10 and morphine 2 mg every 4 hours IV when necessary for breakthrough Hospital course: Patient has a history of unprovoked DVT and PE in 2012. IVC filter was placed. He was started on Coumadin which he stopped taking one year ago. No sign of PE on CTA 09/20. He will need indefinite anticoagulation because of his history. US Right Leg Venous Doppler- Echogenic noncompressible material is seen extending from the common femoral vein to the below-knee popliteal vein. This is essentially occlusive throughout. Thrombus is also seen at the junction of the greater saphenous vein with the common femoral vein. This is nearly occlusive. * Hematology consulted * would be best served by one of the modern anticoagulants such as Xarelto 20 milligrams a day or apixaban 5 milligrams a day as opposed to Coumadin. However , pt does not have money or insurance. * INR between 2 and 3 indefinitely * at a high risk of recurrent venous thrombosis given that the second unprovoked venous thrombosis and is extensive. * Case management consulted * Heparin drip titrated per protocol- currently therapeutic * Daily INRs (goal between 2 and 3) * Will consult Vascular surgery for further recommendations on treatment, we appreciate your recs * Compression for symptom relief (compression hose toes to groins) - wear every day * No indication for intervention given only modest symptoms as risk/benefits not great for chronic DVT * Follow-up appointment in one month with Dr. Sainz (2) Tobacco dependence syndrome Status: Chronic Plan: Pt has a 40 pack year history. Interested in quitting. * Nicotine patch * Referral to the [place] Quit line (3) Constipation due to pain medication ICD Codes: K59.03 - Drug induced constipation Status: Acute Plan: No bowel movement in last 24hr. * Continue protocol * Continue pain control as above, but patient was counseled and has been reducing frequency of medication due to likelihood of opioid-induced constipation (4) FEN Status: Acute Plan: Fluids: PO hydration Electrolytes: monitor and replete as needed Nutrition: heart healthy diet GI ppx: Not indicated Katerin Devlin MD R1 Sep 28, 2017 09:59
[2017-09-28 12:00] VITALS: BP 117/73; PULSE 76; RESP 17; TEMP 97.5; O2SAT 100
[2017-09-28] MEDS ORDERED: INFLUENZA VIRUS VACCINE (QUADRIVALENT) 0.5 ML SYR IM ONE (13:45)
--- NOTE | 2017-09-28 15:27 | HHI.DS ---
Discharge Summary Admission Date Sep 20, 2017 at 14:36 Discharge Date: Sep 28, 2017 Admitting Diagnosis extensive DVT right leg (1) DVT (deep venous thrombosis) Diagnosis: Principal Plan: Warfarin 5mg po qD until 09/23, increased to 10mg on 09/24. INR 2.0, therapeutic, today. Home today. Continue heparin drip for bridging Pain control with [place] 5-325mg pain 1-5, [place] 10-650mg pain 6-10 and morphine 2 mg every 4 hours IV when necessary for breakthrough Hospital course: Patient has a history of unprovoked DVT and PE in 2012. IVC filter was placed. He was started on Coumadin which he stopped taking one year ago. No sign of PE on CTA 09/20. He will need indefinite anticoagulation because of his history. US Right Leg Venous Doppler- Echogenic noncompressible material is seen extending from the common femoral vein to the below-knee popliteal vein. This is essentially occlusive throughout. Thrombus is also seen at the junction of the greater saphenous vein with the common femoral vein. This is nearly occlusive. * Hematology consulted * would be best served by one of the modern anticoagulants such as Xarelto 20 milligrams a day or apixaban 5 milligrams a day as opposed to Coumadin. However , pt does not have money or insurance. * INR between 2 and 3 indefinitely * at a high risk of recurrent venous thrombosis given that the second unprovoked venous thrombosis and is extensive. * Case management consulted * Heparin drip titrated per protocol- currently therapeutic * Daily INRs (goal between 2 and 3) * Will consult Vascular surgery for further recommendations on treatment, we appreciate your recs * Compression for symptom relief (compression hose toes to groins) - wear every day * No indication for intervention given only modest symptoms as risk/benefits not great for chronic DVT * Follow-up appointment in one month with Dr. Sainz ICD Codes: I82.409 - DVT (deep venous thrombosis) Status: Acute (2) Tobacco dependence syndrome Plan: Pt has a 40 pack year history. Interested in quitting. * Nicotine patch * Referral to the [place] Quit line Status: Chronic (3) Constipation due to pain medication Plan: No bowel movement in last 24hr. * Continue protocol * Continue pain control as above, but patient was counseled and has been reducing frequency of medication due to likelihood of opioid-induced constipation ICD Codes: K59.03 - Drug induced constipation Status: Acute (4) FEN Plan: Fluids: PO hydration Electrolytes: monitor and replete as needed Nutrition: heart healthy diet GI ppx: Not indicated Status: Acute Brief History Mr. Dozier is a 52-year-old male with a past medical history of PE and DVT presenting to the ED with right leg swelling. He states that 5 days ago, Friday , he was going to work and ran out of gas. He walked home, and ran across the street, once he got to the other side he felt like he was about to pass out. As he kept walking he felt his legs getting tighter and tighter. He did not go to work that day. The next day, Friday, his back was starting to hurt along with his legs. 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 His legs were stiff when he was walking. Over the week it got progressively worse. He tried Alice aspirin that did not help. His leg started to swell last night. He tried to take 2 [place] aspirin with an Aleve. He elevated his legs overnight. This morning his left leg had gone down, but his right thigh stayed swollen. He was diagnosed with DVTs and PE in 2012. He was placed on Coumadin. He states that he stopped taking Coumadin 1-2 years ago when he lost his insurance and did not return to see his physician. Since then, he's been taking aspirin every day, but stopped after a while. Of note, when he first got his DVT in 2012 he was taking a diet pill called Lipolin right before he got his symptoms. Now at this episode, he just started taking a new diet pill, Garcinia Cambogia, that he got from [employer]. CBC/BMP: 09/28/17 0528 09/24/17 0605 Significant Findings Laboratory Tests Test 09/26/17 04:32 09/26/17 12:05 09/27/17 05:55 09/27/17 20:28 Red Blood Count 3.81 MIL/MM3 (4.50-5.90) Hemoglobin 11.0 GM/DL (13.0-17.0) Hematocrit 32.9 % (39.0-51.0) Platelet Count 127 TH/MM3 (150-450) Prothrombin Time 17.9 SEC (9.8-11.6) 20.7 SEC (9.8-11.6) Activated Partial Thromboplast Time 69.9 SEC (24.3-30.1) 76.2 SEC (24.3-30.1) 61.1 SEC (24.3-30.1) Test 09/28/17 05:28 Red Blood Count 3.88 MIL/MM3 (4.50-5.90) Hemoglobin 11.0 GM/DL (13.0-17.0) Hematocrit 33.9 % (39.0-51.0) Platelet Count 149 TH/MM3 (150-450) Monocytes (%) (Auto) 13.8 % (0.0-8.0) Eosinophils (%) (Auto) 6.4 % (0.0-4.0) Prothrombin Time 22.5 SEC (9.8-11.6) Activated Partial Thromboplast Time 62.5 SEC (24.3-30.1) Imaging Last Impressions Lower Extremity Ultrasound 09/20/17 1330 Signed Impressions: Service Date/Time: Wednesday, September 20, 2017 13:28 - CONCLUSION: Diffuse occlusive DVT. Vega London Jr., MD Lumbar Spine CT 09/20/17 1113 Signed Impressions: Service Date/Time: Wednesday, September 20, 2017 11:25 - CONCLUSION: 1. Mild disc bulge at the L4-5 level. It is very prominent ligamentum flavum hypertrophy. These changes cause at least mild narrowing of the thecal sac. 2. Facet hypertrophy at the L3-L4 and L4-L5 levels Darian Almanza MD CT Angiography 09/20/17 0000 Signed Impressions: Service Date/Time: Wednesday, September 20, 2017 16:12 - CONCLUSION: 1. Negative for pulmonary embolus. Minimal emphysema at the lung apices. Mild dependent atelectasis in the lungs. Luciano Xie MD PE at Discharge GENERAL: Well-nourished, well-developed male patient in no apparent distress. SKIN: Warm and dry. Hyperpigmented skin of left lower leg. HEAD: Normocephalic. Atraumatic. EYES: No scleral icterus. No injection or drainage. NECK: Supple, trachea midline. No JVD or lymphadenopathy. CARDIOVASCULAR: Regular rate and rhythm without murmurs, gallops, or rubs. RESPIRATORY: Breath sounds equal bilaterally. No accessory muscle use. Diffuse wheezes bilaterally. GASTROINTESTINAL: Abdomen soft, non-tender, nondistended. EXTREMITIES: No cyanosis. 1+ pitting edema of total right leg with skin tightness to above knee. No calf tenderness. NEUROLOGICAL: Awake, alert, and oriented x 3. Non-focal. Hospital Course Mr. Dozier is a 52-year-old male with past medical history of DVT and PE who presented with right leg DVT on 09/20. Lower extremity ultrasound showed diffuse occlusive DVT in his right leg. He was started on a heparin drip and warfarin. He became therapeutic at 2.0 INR on 09/28. He was then discharged on warfarin 10 mg daily with follow-up INR to be done the next day. He is to follow-up with the PCP in the [facility] clinic this week. Pt Condition on Discharge: Stable Discharge Disposition: Disch w/ Home Health Serv Discharge Instructions DIET: Follow Instructions for: Heart Healthy Diet, Coumadin (Warfarin) Diet Additional Diet Instructions: Warfarin diet with heart-healthy options Activities you can perform: Weight Bearing as Kelly Follow up Referrals: PCP Follow-up - 1 Week Vascular Surgery - 1 Month @ Vascular Surgery with Mateo Sainz MD Venous Duplex Exam 10/27/2017 @ 9am F/U appointment 10/26/2017 @ 2:15pm Call to confirm appointments after discharge New Orders: PT/INR - 09/29/17 PT/INR - 3-5 Days New Medications: Warfarin (Warfarin) 10 Mg Tab 10 MG PO DAILY for Blood Clot Prevention, #30 TAB 0 Refills Hydrocodone-Acetaminophen (Hydrocodone-Acetaminophen) 5-325 mg Tab 1 TAB PO Q4-6H PRN for PAIN SCALE 1 TO 5, #20 TAB Discontinued Medications: Aspirin (Aspirin) 325 Mg Tab 325 MG PO DAILY, #30 TAB 0 Refills Katerin Devlin MD R1 Sep 28, 2017 15:27
== END 2017-09-28 13:42 | disposition home or self-care (01) | DRG 301 ==
LOC: NEPD 10:31 → OBSVTOIN 14:36 → NEDA 14:36 → INTOOBSV 14:36 → N07B 18:21
PROVIDERS: ADMIT Family Medicine; ATTEND Family Medicine
DX: I82.411 Acute embolism and thrombosis of right femoral vein (principal); I82.431 Acute embolism and thrombosis of right popliteal vein; E66.9 Obesity, unspecified; F17.210 Nicotine dependence, cigarettes, uncomplicated; Z68.34 Body mass index [BMI] 34.0-34.9, adult; Z86.711 Personal history of pulmonary embolism; K59.03 Drug induced constipation
CPT/HCPCS: 71275; 72131; 80048; 80053; 80076; 80307; 81001; 85025; 85027; 85610; 85730; 93971; 96361; 96374; J1644; J1885; J2270; J7040; Q9967